=== PATIENT | male | born 1940 | race Caucasian/White ===

== ENCOUNTER 2020-06-25 03:35 | Outpatient (CLI) | payer MEDICARE, OTHER, SELFPAY ==
[2020-06-25 20:39] LABS: SARS-CoV-2 RNA PCR Negative
== END 2020-06-25 03:36 | disposition home or self-care (01) ==
LOC: ANHCOVIDDT 03:35
PROVIDERS: PCP Internal Medicine; Visit Provider Urology
DX: Z01.812 Encounter for preprocedural laboratory examination (principal); Z20.828 Contact with and (suspected) exposure to other viral communicable diseases
CPT/HCPCS: 87635; C9803; U0003

== ENCOUNTER 2020-06-28 00:33 | Day surgery (SDC) | payer MEDICARE, OTHER, SELFPAY ==
[2020-06-14 15:17] VITALS: BMI 25.7
[2020-06-28] VITALS (9 sets, daily range): BP systolic 123–163; BP diastolic 65–80; PULSE 64–73; RESP 13–18; TEMP 36.3–36.5; O2SAT 98–100
--- NOTE | 2020-06-28 06:27 | WPDHPUPDATE1 ---
History and Physical Update Update Date/Time: 06/28/20 06:27 History and Physical has been reviewed, including an updated exam of the patient. There are NO changes in the patient's condition. Risks, benefits, and alternatives have been discussed and questions answered. Patient agrees to proceed with procedure.
[2020-06-28] MEDS: LACTATED RINGERS 1,000 ML 30 ML IV CONT ×2 (10:30→11:44)
--- NOTE | 2020-06-28 10:32 | WPDANESEPPF ---
Anes - Initial Pre Proc Eval Procedure: Operation Date: 06/28/20 12:00 Proposed Procedures p Cystoscopy, Urethral Dilatation - Alejandro Worley MD s Circumcision - Alejandro Worley MD Date/Time: 06/28/20 10:32 Surgeon: Alejandro Worley MD Pre Op Diagnosis: Urethral Stricture, Phimosis Patient Data Age: 79 Gender: M Height: 5 ft 11 in Weight: 83.5 kg Allergies Allergy/AdvReac Type Severity Reaction Status Date / Time Penicillins Allergy Mild PARALYZED Unverified 06/28/20 10:12 Home Medications Medication Instructions Recorded Confirmed Type ascorbic acid (vitamin C) 500 mg PO DAILY 06/14/20 06/14/20 History aspirin [Adult Low Dose Aspirin] 81 mg PO DAILY 06/14/20 06/28/20 History atorvastatin 40 mg PO HS 06/14/20 06/14/20 History cyanocobalamin (vitamin B-12) 1,000 mcg PO DAILY 06/14/20 06/14/20 History enalapril maleate 2.5 mg PO BID 06/14/20 06/14/20 History multivitamin,tx-minerals [Men's 1 tablet PO DAILY 06/14/20 06/14/20 History MultiPlus] Patient hx anesthesia problems: none Family hx anesthesia problems: none PMFSH Past Medical History Medical History CAD (coronary artery disease) Hyperlipidemia Hypertension Surgical History Surgical History Stented coronary artery Social History Social History Smoking status: Never smoker Alcohol intake: current Alcohol use details: 4 DRINKS PER MONTH RED WINE Living arrangements: with family Spiritual care concerns: No Anes - Eval Final PreProcedure Day of Procedure 06/28/20 10:32 Patient weight: normal Heart: regular rate and rhythm Lungs: clear to auscultation Airway: Mallampati scale class II Neurological: alert and oriented Last oral intake: >/= 8 hours ASA classification: III Emergent: no Anesthetic plan: proceed Anesthesia type and monitoring: general GIVS and standard monitoring Informed Consent: The patient's anesthetic plan and its attendant risks and benefits were discussed with the patient/family/POA. Questions were solicited and answers provided to the satisfaction of the patient/family/POA.
[2020-06-28] MEDS: levoFLOXacin 500 MG/D5W 100 ML 500 MG/100 ML BAG 100 MG IVPB (10:49)
[2020-06-28] MEDS: BUPIVACAINE HCL 0.5% PF 30 ML VIAL INFILTRATE (11:12)
--- NOTE | 2020-06-28 11:39 | PM.PROC ---
Procedure Note - Detailed Date of procedure: 06/28/20 Pre-op diagnosis: Urethral Stricture, Phimosis Post-op diagnosis: same Procedure performed: 1. Cysto./urethral dilatation 2. Circumcision Description of procedure: The patient was brought to the operative suite where he was prepped and draped in a routine sterile fashion while in a supine position after the uneventful induction of a general LMA anesthetic. Cystoscopy was undertaken with a 16F flexible cystoscope. There was a tight penile urethral stricture The prostatic urethral estimated length was 1.5cm. There was mild obstruction of the prostatic urethra with no median lobe enlargement. The bladder itself was endoscopically normal without foreign body or neoplasm. The bladder mucosa was without hyperemia. There was a single orthotopic ureteral orifice bilaterally with clear efflux of urine. Using the filiforms/followers I dilated the urethra and bladder neck from 12F -> 22F. I then turned attention to the circumcision.. The lines of circumcision are outlined using a sterile marking pen. 2 circumferential circumcising incisions were made and carried down to Colle's fascia. The penile foreskin is circumferentially excised. Hemostasis is obtained with electric cautery. The edges of the penile skin reapproximated using a combination of running and interrupted 4-0 chromic. A penile block is administered at the base of the penis with 0.25% bupivacaine. The patient was taken to the recovery room in good condition. EBL was approximately 10cc. Anesthesia: GLMA Surgeon: Alejandro Worley MD Estimated blood loss (mL): 10 Drains: No Packing: No Pathology: yes (Foreskin) Complications: No immediate complications Condition: stable Disposition: PACU
== END 2020-06-28 13:20 | disposition home or self-care (01) ==
PROVIDERS: PCP Internal Medicine; Visit Provider Urology
PROC: 0T7D8ZZ Dilation of Urethra, Via Natural or Artificial Opening Endoscopic (ICD-10-PCS; CPT 52281; principal; 2020-06-28 12:00)
PROC: (CPT 54161; 2020-06-28 12:00)
DX: N35.911 Unspecified urethral stricture, male, meatal (principal); N47.1 Phimosis; N48.0 Leukoplakia of penis; I10 Essential (primary) hypertension; E78.5 Hyperlipidemia, unspecified; I25.10 Atherosclerotic heart disease of native coronary artery without angina pectoris; Z79.82 Long term (current) use of aspirin; Z95.5 Presence of coronary angioplasty implant and graft
CPT/HCPCS: 53620; 54161; 88304; A9270; J1100; J1956; J2405; J2704; J7120

== ENCOUNTER 2021-10-17 00:50 | Day surgery (SDC) | payer MEDICARE, SELFPAY ==
--- NOTE | 2021-10-09 09:10 | PC.NURSE ---
Report to the Outpatient Waiting Room, entrance under the green pavilion located off [facility], at time __06 on date __10/17/21 . OR Time: __814 . - You and your visitor will be asked a series of questions to screen for COVID 19 for your protection. - A mask is required within the hospital. Preoperative COVID Testing Requirements: No COVID Test needed if: (proof is required; if not received patient will have Rapid Test prior to entry) - Patient has received COVID Vaccine at least 14 days prior to procedure date or - Patient has positive COVID test result within last 90 days of surgery date. COVID Test needed if above criteria is not met If not COVID vaccinated a COVID test must be conducted within 72 hours of surgery and patient is asked to isolate self from time of testing until procedure. You will go to the [facility] for your COVID testing. The [facility] is located at the corner of [address] [facility]. You will only be called if COVID results are positive and your surgeon may reschedule your elective surgery date. Patients may have clear liquids (water, carbonated beverages, clear teas, apple juice) until 3 hours prior to surgery with a maximum of 20 ounces. - No food from midnight until time of surgery - Infants may have breast milk until 4 hours before surgery, formula 6 hours prior to surgery. - Children will be allowed to drink immediately following surgery. If applicable, please bring a bottle or sippy cup to assist with drinking. Juice, water, soda, and popsicles are readily available. For infants on formula, please bring formula the day of surgery. Pacifiers are allowed. Take the following medications with a SIP of water the morning of surgery: __NONE Medications to discontinue per physician ____ASPIRIN PER DR TRAN, ALL VITAMINS AND SUPPLEMENTS 3 DAYS PRE OP Date to take last dose____10/13/21 Please no make-up, nail ukrainian, hairspray, perfume, deodorant, or body powder the day of surgery. No jewelry (including any body piercings) or valuables the day of surgery, leave them at home. Please take a shower or bath the night before, or the morning of, surgery with an antibacterial soap. Wear comfortable, loose fitting clothing. Children are encouraged to wear pajamas. - Jewelry must be removed prior to entering the operating room. Rings and piercings that are not removed may be cut off. - The hospital will not accept responsibility for valuables. - Please leave all valuables, including medications, at home the day of surgery. If you are going home after surgery, a licensed lumber driver must drive you home. - NO public transportation without another adult. - We recommend that an adult stay with you for 24 hours following discharge. - We also recommend that you do not drive, make important decision, drink alcoholic beverages, or take any drugs that were not prescribed by your health care provider for at least 24 hours after your discharge time One visitor will be allowed to accompany the patient into the hospital. Patients visitor will be instructed to remain with patient at all times or leave the building. We will allow the visitor to come back to the postoperative area when patient is ready. Follow any additional instructions given to you from your surgeon. Telephone instructions given to _PATIENT and asked if any additional questions and then verbalized understanding. Patient advised to call surgeon office or pre surgery nurse liaison [phone] if any additional questions.
[2021-10-09 09:16] VITALS: BMI 25.2
--- NOTE | 2021-10-17 06:28 | WPDHPUPDATE1 ---
History and Physical Update Update Date/Time: 10/17/21 06:28 History and Physical has been reviewed, including an updated exam of the patient. There are NO changes in the patient's condition. Risks, benefits, and alternatives have been discussed and questions answered. Patient agrees to proceed with procedure.
[2021-10-17] MEDS: LACTATED RINGERS 1,000 ML 30 ML IV CONT (07:10)
--- NOTE | 2021-10-17 07:15 | WPDANESEPPF ---
Anes - Initial Pre Proc Eval Procedure: Operation Date: 10/17/21 08:15 Proposed Procedures p Cystoscopy, Urethral Dilatation - Alejandro Worley MD Date/Time: 10/17/21 07:15 Surgeon: Alejandro Worley MD Pre Op Diagnosis: Urethral Stricture, Prostate Ca Patient Data Age: 81 Gender: M Height: 1.8 m Weight: 81.6 kg Allergies Allergy/AdvReac Type Severity Reaction Status Date / Time Penicillins Allergy Mild PARALYZED Unverified 10/17/21 06:54 Home Medications Medication Instructions Recorded Confirmed Type ascorbic acid (vitamin C) 500 mg PO DAILY 06/14/20 10/17/21 History aspirin 81 mg PO DAILY 06/14/20 10/17/21 History atorvastatin 40 mg PO HS 06/14/20 10/17/21 History cyanocobalamin (vitamin B-12) 1,000 mcg PO DAILY 06/14/20 10/17/21 History enalapril maleate 2.5 mg PO BID 06/14/20 10/17/21 History multivitamin,tx-minerals 1 tablet PO DAILY 06/14/20 10/17/21 History Patient hx anesthesia problems: none Family hx anesthesia problems: none Results Review: All pre-operative results and documents have been reviewed as part of the pre-operative evaluation. [facility] Past Medical History Medical History CAD (coronary artery disease) Hyperlipidemia Hypertension Surgical History Surgical History Stented coronary artery Social History Social History Smoking status: Never smoker Alcohol intake: current Alcohol use details: 4 DRINKS PER MONTH Living arrangements: with family Spiritual care concerns: No Anes - Eval Final PreProcedure Day of Procedure 10/17/21 07:15 Patient weight: normal Heart: regular rate and rhythm Lungs: clear to auscultation Airway: Mallampati scale class II Neurological: alert and oriented Last oral intake: >/= 8 hours ASA classification: III Emergent: no Anesthetic plan: proceed Anesthesia type and monitoring: general GIVS and standard monitoring Results Review: All pre-operative results and documents have been reviewed as part of the pre-operative evaluation. Informed Consent: The patient's anesthetic plan and its attendant risks and benefits were discussed with the patient/family/POA. Questions were solicited and answers provided to the satisfaction of the patient/family/POA.
[2021-10-17] MEDS: ceFAZolin 2 GM/D5W 50 ML 2 GM/50 ML BAG IVPB (08:02)
[2021-10-17] MEDS: LIDOCAINE HCL 2% GEL UROJET 10 ML PKG MUCOUS MEM (08:16)
[2021-10-17 08:23] VITALS: BP 87/51; PULSE 58; RESP 12; O2SAT 96
--- NOTE | 2021-10-17 08:23 | W.PM.PROC2 ---
Procedure Note - Detailed Date of Procedure 10/17/21 Pre-op Diagnosis Urethral Stricture, Prostate Ca Post-op Diagnosis same Procedure Performed Cystoscopy, urethral dilatation Surgeon Alejandro Worley MD Anesthesia general Description of Procedure The patient was brought to the operative suite where he was prepped and draped in a routine sterile fashion while in a dorsal lithotomy position after the uneventful induction of a general LMA anesthetic. Cystoscopy was undertaken with a 19F rigid cystoscope. There was a markedly constricting fossa navicular. The prostatic urethral estimated length was 1.0cm. There was no obstruction of the prostatic urethra with no median lobe enlargement. The bladder itself was endoscopically normal without foreign body or neoplasm. The bladder mucosa was without hyperemia. There was a single orthotopic ureteral orifice bilaterally with clear efflux of urine. Using the Stefanie sounds I dilated the urethra and bladder neck from 12F -> 28F. The bladder was emptied and the patient was taken to the recovery room in good condition Estimated Blood Loss 0 Drains No Packing No Pathology none sent Complications No immediate complications Condition stable Disposition PACU
[2021-10-17 08:50] VITALS: BP 113/64; PULSE 56; RESP 14; O2SAT 95
[2021-10-17 09:20] VITALS: BP 139/74; PULSE 55; RESP 14
== END 2021-10-17 09:45 | disposition home or self-care (01) ==
PROVIDERS: PCP Internal Medicine; Visit Provider Urology
PROC: 0T7D8ZZ Dilation of Urethra, Via Natural or Artificial Opening Endoscopic (ICD-10-PCS; CPT 52281; principal; 2021-10-17 08:15)
DX: N99.115 Postprocedural fossa navicularis urethral stricture (principal); N40.1 Benign prostatic hyperplasia with lower urinary tract symptoms; N47.1 Phimosis; R39.11 Hesitancy of micturition; R39.16 Straining to void; Z85.46 Personal history of malignant neoplasm of prostate; Z92.3 Personal history of irradiation; I10 Essential (primary) hypertension; E78.5 Hyperlipidemia, unspecified; I25.10 Atherosclerotic heart disease of native coronary artery without angina pectoris; Z79.82 Long term (current) use of aspirin; Z95.5 Presence of coronary angioplasty implant and graft
CPT/HCPCS: 52281; A9270; J0690; J1100; J2405; J2704; J3010; J7120

== ENCOUNTER 2025-06-27 08:30 | Emergency (ER) | payer MEDICARE, SELFPAY ==
--- OUTSIDE RECORDS SUMMARY | 2024-11-25 11:15 | XMS_ITS ---
Author Organization [facility] Office Address [address] [address] [facility] [address] [place] [address] Care Team Providers Care Card Game Operator Name Role Phone TAN SANCHEZ Primary Care Provider [phone] Mitesh Mills [phone] REASON FOR VISIT PT DOESNT WANT TO BE SEEN AT ALL HE SAID TO STOP CALLING HIM Encounters Encounter Location Date Provider Diagnosis [facility] [address] [facility] [address] [place] [address] 11/25/2024 Mitesh Mills Plan Of Treatment No Information Progress Notes * NAVA ROMERO CDOB:1940 (84 yo M)Acc No.[id number]:11/25/2024 Progress Notes Patient: NAVA HANCOCK Provider: Olivia OTERO MD, Riley.Jeremy.C.P, F.A.S.N. :1940 A ge:84 Y S ex:Male Date:11/25/2024 Address:[address] [place], [place] [id number] Pcp:TAN SANCHEZ Subjective: * Chief Complaints: * 1 . PT DOESNT WANT TO BE SEEN AT ALL HE SAID TO STOP CALLING HIM. * Medical History: Objective: * Vitals: Assessment: Plan: * Treatment: * Billing Information: * Visit Code: * Procedure Codes: * Electronic signature of Debbie Mills MD on 06/27/2025 at 08:40 AM [facility] NURSE Sign off status: Pending * Provider: Olivia OTERO MD, Romeo.C.P, F.A.S.N. Date: 0 11/25/2024 Generated for Printing/Faxing/eTransmitting on: 1 08/27/2024 08:40 AM [facility] NURSE
[2025-06-27] VITALS (11 sets, daily range): BP systolic 132–157; BP diastolic 65–79; PULSE 65–72; RESP 12–21; TEMP 36.6; O2SAT 99–100
--- NOTE | ~2025-06-27 | CT_ITS ---
EXAMINATION: CT abdomen pelvis wo/w con DATE: 06/27/2025 12:04 INDICATION: Urinary retention TECHNIQUE: Computed tomography (CT) of the abdomen and pelvis was performed without intravenous contrast. CT of the abdomen and pelvis was then performed with a total of 130 mL Omnipaque-350 intravenous contrast using a double-bolus technique for simultaneous opacification of the renal parenchyma and renal collecting system. Automated exposure control and iterative reconstruction technique were employed. The dose-length product was 1184.31 mGy-cm. COMPARISON: None FINDINGS: Lung bases are clear. Heart size is normal. Atherosclerotic coronary artery disease with likely coronary artery stenting. No pericardial effusion. Small sliding-type hiatal hernia. There are multiple small well-defined low- attenuation hepatic cysts measuring up to 1 cm in the right hepatic lobe. Gallbl adder, spleen, pancreas and bilateral adrenal glands are normal. 1.2 cm nonenhancing exophytic cyst at the upper pole of the left kidney. 5-6 mm nonobstructing stone at a lower pole calyx of the left kidney. No other renal or ureteral stones. No urothelial irregularities along the contrast opacified po rtions of the renal collecting systems and ureters with small portion of the distalmost bilateral ureters are decompressed and unopacified with contrast. Small amount of gas and a Hernandez catheter within the bladder. Multiple brachytherapy seeds at the mildly enlarged prostate which measures 4.3 x 3.5 cm. Small fat-containing right inguinal hernia. There are few diverticula along the sigmoid colon without adjacent comparison to suggest diverticular colitis. Small bowel and appendix are normal. Very small fat-containing umbilical and left paraumbilical hernias. No free intraperitoneal gas or fluid. No pathologically enlarged abdominal or pelvic lymphadenopathy. Likely vasectomy clips along the bilateral spermatic cords at the base of the scrotum. Moderate lumbar spondylosis with prominent Schmorl's nodes along the inferior endplate of L1 and superior endplate of L3. IMPRESSION: 1. 5-6 mm nonobstructing left renal stone. 2. Mild prostatomegaly with multiple brachytherapy seeds the prostate. 3. Small sliding-type hiatal hernia. Reviewed, dictated and finalized at location A. TUTOR
--- NOTE | 2025-06-27 08:41 | ED.MALEGU ---
HPI - Male Genitourinary General Chief complaint: Urogenital-Male Stated complaint: unable to urinate Time Seen by Provider: 06/27/25 08:32 History of Present Illness HPI Narrative: Pt presents with urinary retention. Pt says unable to void since yesterday afternoon. Pt has history of BPH and has required a zimmerman in the past. Pt saw a urologist at [facility] yesterday but would like to see someone from Dr Joseph's group instead. Pt denies fever or other symptoms. Related Data Home Medications ?Medication ?Instructions ?Recorded ?Confirmed ?Last Taken ?Type ascorbic acid (vitamin C) 500 mg 500 mg PO DAILY 06/14/20 10/17/21 Unknown History tablet aspirin 81 mg tablet 81 mg PO DAILY 06/14/20 10/17/21 06/21/20 History Held on 10/17/21. Instructions: Resume on 10/19/21. atorvastatin 40 mg tablet 40 mg PO HS 06/14/20 10/17/21 Unknown History cyanocobalamin (vitamin B-12) 1,000 mcg PO DAILY 06/14/20 10/17/21 Unknown History 1,000 mcg tablet enalapril maleate 2.5 mg tablet 2.5 mg PO BID 06/14/20 10/17/21 Unknown History multivitamin,tx-minerals 1 tablet PO DAILY 06/14/20 10/17/21 Unknown History Allergies Allergy/AdvReac Type Severity Reaction Status Date / Time Penicillins Allergy Mild PARALYZED Unverified 10/17/21 06:54 Review of Systems Review of Systems: All systems reviewed & are unremarkable except as noted in HPI and below PMFSH Past Medical History Medical History CAD (coronary artery disease) Hyperlipidemia Hypertension Surgical History Surgical History Stented coronary artery Social History Social History Alcohol intake: current Alcohol use details: 4 DRINKS PER MONTH Living arrangements: with family Spiritual care concerns: No Exam Const: General: healthy appearing and no acute distress Nutritional Appearance: well nourished Limitations: no limitations Chest: Chest palpation & inspection: normal inspection of the chest Resp: Effort & Inspection: normal respiratory effort Auscultation: clear to auscultation bilaterally Cardio: Rate: regular rate Rhythm: regular rhythm GI: GI Palp: Yes Soft to palpation and Yes Tenderness to palpation present (GI) (suprapubic) Auscultation: normal bowel sounds : General: Yes Bladder palpation abnormal distended and tender Back/Spine/Pelvis: Back: no CVA tenderness Skin: General skin exam: normal color Rashes: no rashes Wounds: no wounds Neuro: General: patient oriented x3 and moves all extremities Speech: normal speech Extrem: General: normal to inspection and no clubbing, cyanosis or edema Psych: Mental Status: mental status grossly normal Affect: normal affect Attitude: cooperative Course Vital Signs Vital signs: Vital Signs Pulse Rate 71 06/27/25 09:08 Respiratory Rate 15 06/27/25 09:08 Blood Pressure 157/65 H 06/27/25 09:08 Pulse Oximetry 100 06/27/25 09:08 Temperature 97.9 F 06/27/25 09:15 Pulse Rate 67 06/27/25 13:37 Respiratory Rate 18 06/27/25 13:37 Blood Pressure 152/79 H 06/27/25 13:37 Pulse Oximetry 100 06/27/25 13:37 Oxygen Delivery Room Air 06/27/25 09:15 MDM - Male Genitourinary MDM Narrative Medical decision making narrative: Pt has urinary retention and cannot void. usually dribbles but not even doing that now. will place zimmerman and send off UA. discussed with Judith, said the he saw Dr Charles yesterday who is in their group because he has stricture so should follow up with him for zimmerman. Pt scheduled for CT tomorrow so will order here. CT unremarkable. Pt says he is not wanting surgery and wants to see Dr Worley so will call for appointment. no evidense of uti. Differential Diagnosis Differential diagnosis: Likely urinary tract infection, urethritis, prostatitis and acute retention of urine Lab Data Attestation: I reviewed the patient's lab results. 06/27/25 12:47 Labs: Lab Results 06/27/25 06/27/25 Range/Units 09:21 12:47 Creatinine 1.00 (0.8-1.5) mg/dL Estim Creat Clear Calc 51 ml/min Estimated GFR > 60 (59 - ) Urine Color Yellow (Yellow) Urine Appearance Clear (Clear) Urine pH 6.5 (5.0-9.0) Ur Specific Gordon 1.015 (1.001-1.035) Urine Protein Trace (Negative) mg/dL Urine Glucose (UA) Negative (Negative) mg/dL Urine Ketones Negative (Negative) mg/dL Ur Blood (Man) Negative (Negative) Urine Nitrate Negative (Negative) Urine Bilirubin Negative (Negative) Urine Urobilinogen 0.2 (<2.0) mg/dL Leukocyte Esterase Rfl Negative (Negative) SANTANA/UL Urine RBC 0-2 (0-2) /hpf Urine WBC 0-5 (0-3) /hpf Ur Squamous Epith Cells None seen (Few) /hpf Urine Bacteria None seen /hpf Urine Casts 0-2 Imaging Data Radiologist's impression: [place] [address] [place] [address] CT Scan Report Signed Patient: Drew Gomes : 1940 MR#: [id number] Age: 84 Acct:[id number] Loc: [facility] ADM Date: 06/27/[address]: Ordering Physician: Evi Elena III, DO Date of Service: 06/27/25 Procedure(s): CT abdomen pelvis wo/w con Accession Number(s): [id number] cc: Evi Elena III, DO~ EXAMINATION: CT abdomen pelvis wo/w con DATE: 06/27/2025 12:04 INDICATION: Urinary retention TECHNIQUE: Computed tomography (CT) of the abdomen and pelvis was performed without intravenous contrast. CT of the abdomen and pelvis was then performed with a total of 130 mL Omnipaque-350 intravenous contrast using a double-bolus technique for simultaneous opacification of the renal parenchyma and renal collecting system. Automated exposure control and iterative reconstruction technique were employed. The dose-length product was 1184.31 mGy-cm. COMPARISON: None FINDINGS: Lung bases are clear. Heart size is normal. Atherosclerotic coronary artery disease with likely coronary artery stenting. No pericardial effusion. Small sliding-type hiatal hernia. There are multiple small well-defined low-attenuation hepatic cysts measuring up to 1 cm in the right hepatic lobe. Gallbladder, spleen, pancreas and bilateral adrenal glands are normal. 1.2 cm nonenhancing exophytic cyst at the upper pole of the left kidney. 5-6 mm nonobstructing stone at a lower pole calyx of the left kidney. No other renal or ureteral stones. No urothelial irregularities along the contrast opacified portions of the renal collecting systems and ureters with small portion of the distalmost bilateral ureters are decompressed and unopacified with contrast. Small amount of gas and a Zimmerman catheter within the bladder. Multiple brachytherapy seeds at the mildly enlarged prostate which measures 4.3 x 3.5 cm. Small fat-containing right inguinal hernia. There are few diverticula along the sigmoid colon without adjacent comparison to suggest diverticular colitis. Small bowel and appendix are normal. Very small fat-containing umbilical and left paraumbilical hernias. No free intraperitoneal gas or fluid. No pathologically enlarged abdominal or pelvic lymphadenopathy. Likely vasectomy clips along the bilateral spermatic cords at the base of the scrotum. Moderate lumbar spondylosis with prominent Schmorl's nodes along the inferior endplate of L1 and superior endplate of L3. IMPRESSION: 1. 5-6 mm nonobstructing left renal stone. 2. Mild prostatomegaly with multiple brachytherapy seeds the prostate. 3. Small sliding-type hiatal hernia. Reviewed, dictated and finalized at location A. RGLASS CONTAINER WINDING OPERATOR Please be advised this is a medical document. It is intended for [id number] communication. It is written in medical language and may contain unfamiliar abbreviations or verbiage. Medical documents are intended to carry relevant information, facts as evident, and the clinical opinion of the practitioner at the time of the encounter. This report may have been done utilizing a voice recognition system. Attempts have been made to correct errors. However, there may be uncorrected grammatical, spelling, and recognition errors present. The file time of this note does not necessarily represent the time of service. Dictated By: Vick Neal MD 06/27/25 1213 Signed By: <Electronically signed by Vick Neal MD in OV> Discharge Plan Discharge Clinical Impression: Acute retention of urine Patient Disposition: Home Condition: Improved Instructions: Antibiotic Form, Urinary Retention in Men (ED) Patient Language: Uzbek Prescriptions: No Action atorvastatin 40 mg tablet 40 mg PO HS aspirin 81 mg Tablet 81 mg PO DAILY cyanocobalamin (vitamin B-12) 1,000 mcg Tablet 1,000 mcg PO DAILY ascorbic acid (vitamin C) 500 mg Tablet 500 mg PO DAILY multivitamin,tx-minerals Tablet 1 tablet PO DAILY enalapril maleate 2.5 mg tablet 2.5 mg PO BID hydrocodone-acetaminophen 5-325 mg tablet 1 - 2 tablet PO Q6H PRN (Reason: pain) Qty: 20 0RF ciprofloxacin HCl 500 mg tablet 500 mg PO Q12H Qty: 4 0RF Follow-up/Referrals: Carolynn,MD Barrie [Primary Care Provider, Unknown] Cesar Wong MD [Physician, Urology] Lizbeth Charles MD [Physician, Urology]
--- OUTSIDE RECORDS SUMMARY | 2025-06-27 08:41 | XMS_ITS | Data Portability ---
Author Organization [facility] [employer], Main Office Address [address] [place] [address] Care Team Providers Care Funeral Professional Name Role Phone BARRIE PRADHAN Primary Care Provider [phone] BARRIE PRADHAN Referring Provider Assessment Encounter Date Assessment Date Assessment LastModified by Organization Details LastModified Time 05/10/2024 05/10/2024 06/17/2022: B12/Folate/ T D/TSH/CMP/Lip id: WNL CBC: MCV 99.8 11/12/2022: A1C 5.8 B12/folate/TS H/VIT D/Lipid: WNL Gluc 100 CBC: MCV 98.3 03/17/2023: A1C 5.8 VIT D 29.9 LDL 119 Bili T 1.90 MCV 97.6 07/21/2023: A1C 5.4 Chol 207, LDL 145 MCV 101.5 12/29/2023: A1C 5.7 Gluc 101 MCV 100.0 (B12/folate/T SH/FT4: WNL) 05/03/2024: Urine micro alb 603.3 VIT D 26.2 H/H 12.8/38.6, MCV 98.7 [email or web address] Not available 05/10/2024 11:33:24 09/13/2024 09/13/2024 06/17/2022: B12/Folate/ T D/TSH/CMP/Lip id: WNL CBC: MCV 99.8 11/12/2022: A1C 5.8 B12/folate/TS H/VIT D/Lipid: WNL Gluc 100 CBC: MCV 98.3 03/17/2023: A1C 5.8 VIT D 29.9 LDL 119 Bili T 1.90 MCV 97.6 07/21/2023: A1C 5.4 Chol 207, LDL 145 MCV 101.5 12/29/2023: A1C 5.7 Gluc 101 MCV 100.0 (B12/folate/T SH/FT4: WNL) 05/03/2024: Urine micro alb 603.3 VIT D 26.2 H/H 12.8/38.6, MCV 98.7 [email or web address] Not available 09/13/2024 11:17:36 01/03/2025 01/03/2025 06/17/2022: B12/Folate/ T D/TSH/CMP/Lip id: WNL CBC: MCV 99.8 11/12/2022: A1C 5.8 B12/folate/TS H/VIT D/Lipid: WNL Gluc 100 CBC: MCV 98.3 03/17/2023: A1C 5.8 VIT D 29.9 LDL 119 Bili T 1.90 MCV 97.6 07/21/2023: A1C 5.4 Chol 207, LDL 145 MCV 101.5 12/29/2023: A1C 5.7 Gluc 101 MCV 100.0 (B12/folate/T SH/FT4: WNL) 05/03/2024: Urine micro alb 603.3 VIT D 26.2 H/H 12.8/38.6, MCV 98.7 12/27/2024: [facility] LDL 58 T bili 1.8 A1C 5.8 [email or web address] Not available 01/03/2025 11:28:51 04/18/2025 04/18/2025 06/17/2022: B12/Folate/ T D/TSH/CMP/Lip id: WNL CBC: MCV 99.8 11/12/2022: A1C 5.8 B12/folate/TS H/VIT D/Lipid: WNL Gluc 100 CBC: MCV 98.3 03/17/2023: A1C 5.8 VIT D 29.9 LDL 119 Bili T 1.90 MCV 97.6 07/21/2023: A1C 5.4 Chol 207, LDL 145 MCV 101.5 12/29/2023: A1C 5.7 Gluc 101 MCV 100.0 (B12/folate/T SH/FT4: WNL) 05/03/2024: Urine micro alb 603.3 VIT D 26.2 H/H 12.8/38.6, MCV 98.7 12/27/2024: [facility] LDL 58 T bili 1.8 A1C 5.8 04/11/2025: [facility] Urine random 156H T bili 1.6H MCV 101.2 45 minutes spent with the patient from 10.45am till 11.30am His labs were obtained from [employer] and reviewed in detail with him, further labs provided mary Not available 04/18/2025 15:40:13 Plan of Treatment Reminders Order Date Submit Date Provider Last Modified By Organization Details Last Modified Time Details Appointments Medicare Wellness 15 2025 10:30A M Barrie rutledge MD Not available Not available Not available Lab vitamin B12 + folate, serum or blood 2024 025 [facility], [address], [place], [address], 04/18/2025 12:42:35 microalbu min, urine 2024 025 [facility], [address], [place], [address], 04/18/2025 12:42:34 glycohemo globin, total, blood 2024 025 [employer], [address], [place], [address], 04/18/2025 12:42:34 lipid panel, serum 2024 025 [facility], [address], [place], [address], 04/18/2025 12:42:36 CMP, serum or plasma 2024 025 [employer], [address], [place], [address], 04/18/2025 12:42:37 TSH, serum or plasma 2024 025 [employer] [facility], [address], [place], [address], 04/18/2025 12:42:35 CBC w/ auto diff 2024 025 [facility], [address], [place], [address], 04/18/2025 12:42:36 vitamin D, 25-hydrox y, total, serum 2024 025 [facility] [facility], [address], [place], [address], 04/18/2025 12:42:37 vitamin B12 + folate, serum or blood 2024 025 [facility], [address], [place], [address], 01/03/2025 16:43:53 microalbu min, urine 2024 025 [facility], [address], [place], [address], 01/03/2025 16:43:52 glycohemo globin, total, blood 2024 025 [facility], [address], [place], [address], 01/03/2025 16:43:52 lipid panel, serum 2024 025 [facility], [address], [place], [address], 01/03/2025 16:43:48 CMP, serum or plasma 2024 025 [facility], [address], [place], [address], 01/03/2025 16:43:49 TSH, serum or plasma 2024 025 [facility], [address], [place], [address], 01/03/2025 16:43:50 CBC w/ auto diff 2024 025 [email or web address], [address], [place], [address], 01/03/2025 16:43:50 vitamin D, 25-hydrox y, total, serum 2024 025 [facility], [address], [place], [address], 01/03/2025 16:43:51 vitamin B12 + folate, serum or blood [address] (Lab), [address] [place], [address], 03/13/2025 14:43:27 microalbu min, urine [address] (Lab), [address] [place], [address], 03/13/2025 14:43:27 glycohemo globin, total, blood [address] (Lab), [address] [place], [address], 03/13/2025 14:43:27 lipid panel, serum [address] (Lab), [address] [place], [address], 03/13/2025 14:43:26 CMP, serum or plasma [address] (Lab), [address] [place], [address], 03/13/2025 14:43:26 TSH, serum or plasma [address] (Lab), [address] [place], [address], 03/13/2025 14:43:26 CBC w/ auto diff [address] (Lab), [address] [place], [address], 03/13/2025 14:43:26 vitamin D, 25-hydrox y, total, serum [address] (Lab), [address] [place], [address], 03/13/2025 14:43:27 vitamin B12 + folate, serum or blood [address] (Lab), [address] [place], [address], 11/09/2024 08:38:42 microalbu min, urine [address] (Lab), [address] [place], [address], 11/09/2024 08:38:41 glycohemo globin, total, blood [address] (Lab), [address] [place], [address], 11/09/2024 08:38:42 lipid panel, serum [address] (Lab), [address] [place], [address], 11/09/2024 08:38:41 CMP, serum or plasma [address] (Lab), [address] [place], [address], 11/09/2024 08:38:41 TSH, serum or plasma [address] (Lab), [address] [place], [address], 11/09/2024 08:38:41 CBC w/ auto diff [address] (Lab), [address] [place], [address], 11/09/2024 08:38:41 vitamin D, 25-hydrox y, total, serum [address] (Lab), [address] [place], [address], 11/09/2024 08:38:41 Referral urologist referral - Please call patient to schedule an appointme nt. Thank you. 2024 025 SNOW Worley MD, [address] [facility] [address], [place], [address], 04/25/2025 10:27:15 nephrolog ist referral - Please call patient to schedule an appointme nt. Thank you. 2024 025 Marcelo-Resub [email or web address]-Revert Mitesh Mills MD (Nephrology, [address], [address], [place], [address], 04/25/2025 12:05:21 cardiolog ist referral - Please call patient to schedule an appointme nt. Thank you. 2024 025 SNOW Rodriguez MD, [address] [facility], [address], [place], [address], 04/25/2025 11:02:49 urologist referral - Please call patient to schedule an appointme nt. Thank you. 2024 025 scot Worley MD, [address] [facility] [address], [place], [address], 04/10/2025 11:01:51 nephrolog ist referral - Please call patient to schedule an appointme nt. Thank you. 2024 025 scot Mills MD (Nephrology, [address], [address], [place], [address], 04/10/2025 11:01:49 cardiolog ist referral - Please call patient to schedule an appointme nt. Thank you. 2024 025 scot Rodriguez MD, [address], [address], [place], [address], 04/10/2025 11:01:48 urologist referral - Please call patient to schedule an appointme nt. Thank you. 2024 025 scot Worley MD, [address] [facility] [address], [place], [address], 05/22/2025 14:24:47 nephrolog ist referral - Please call patient to schedule an appointme nt. Thank you. 2024 025 scot Mills MD (Nephrology, [address], [address], [place], [address], 01/19/2025 09:42:53 cardiolog ist referral - Please call patient to schedule an appointme nt. Thank you. 2024 025 scot Rodriguez MD, [address], [address], [place], [address], 01/19/2025 09:42:52 nephrolog ist referral - Please call patient to schedule. 2023 024 [email or web address] Mitesh Mills MD (Nephrology, [address], [address], [place], [address], 12/12/2024 14:02:57 cardiolog ist referral 2023 024 [email or web address] Derrick Rodriguez MD, [address] [facility], [address], [place], [address], 05/10/2024 12:31:33 Procedures None recorded. Surgeries None recorded. Imaging None recorded. Medication Orders trazodone 50 mg tablet 2023 024 [email or web address] [facility], [address] [place] [address], [address], 09/13/2024 11:29:14 Myrbetriq 50 mg tablet,ex tended release 2023 024 [email or web address] [facility], [address] [place] [address], [place], [address], 01/03/2025 11:19:39 Patient TargetsNo targets recorded. Patient Instructions Encounter Date Encounter Id Patient Instructions Last Modified By Organization Details Last Modified Time 05/10/2024 [id number] diabetic eye exam* [email or web address] Not available 11/07/2024 08:35:06 05/25/2024 [id number] 1. He might have a component of urge incontinence I will try him back on the Myrbetriq again 2. He may have a sleep disorder I am going to restart his trazodone 50 mg q.h.s. 3. 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 Follow up as needed [email or web address] Not available 05/25/2024 17:59:10 09/13/2024 [id number] diabetic eye exam* [email or web address] Not available 03/13/2025 08:39:32 Reason for Referral Enrolled Agent Referral for Co ronary arteriosclerosis Referring Physician: Tejinder Recinos Medicine, Encounter Date: 05/10/2024 Coordinate Measuring Machine Technician Referral for Pr oteinuria Please call patient to schedule. Referring Physician: Tejinder Recinos, Encounter Date: 05/10/2024 Enrolled Agent Referral for Co ronary arteriosclerosis Please call patient to schedule an appointment. Thank you. Referring Physician: Barrie Pradhan Internal Medicine, Encounter Date: 09/13/2024 Coordinate Measuring Machine Technician Referral for Pr oteinuria Please call patient to schedule an appointment. Thank you. 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 Thank you. Referring Physician: Tejinder Recinos, Encounter Date: 09/13/2024 Enrolled Agent Referral for Co ronary arteriosclerosis Please call patient to schedule an appointment. Thank you. Referring Physician: Tejinder Recinos, Encounter Date: 01/03/2025 Coordinate Measuring Machine Technician Referral for Pr oteinuria Please call patient to schedule an appointment. Thank you. 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 Thank you. Referring Physician: Tejinder Recinos Medicine, Encounter Date: 01/03/2025 Enrolled Agent Referral for Co ronary arteriosclerosis Please call patient to schedule an appointment. Thank you. Referring Physician: Tejinder Recinos, Encounter Date: 04/18/2025 Coordinate Measuring Machine Technician Referral for Pr oteinuria Please call patient to schedule an appointment. Thank you. Referring Physician: Tejinder Recinos, Encounter Date: 04/18/2025 Urologist Referral for Malmatilda nant neoplasm of prostate Please call patient to schedule an appointment. Thank you. Referring Physician: Barrie Pradhan, Internal Medicine, Encounter Date: 04/18/2025 Results Created Date Observation Date Name Description Value Unit Range Abnormal Flag Note LastModifiedBy Organization Detail LastModifiedTime 05/03/20 24 05/03/2024 CBC/C OMPLE TE BLD COUNT W/DIF F white blood cells 5.5 x10'3 /uL 4.2-10 .8 Not Available [facility] (Lab) [address] [place], [address], 05/03/2024 12:23:38 05/03/20 24 05/03/2024 CBC/C OMPLE TE BLD COUNT W/DIF F red blood cells 3.91 x10'6 /uL 4.10-5 .80 low Not Available [facility] (Lab) [address] [place], [address], 05/03/2024 12:23:38 05/03/20 24 05/03/2024 CBC/C OMPLE TE BLD COUNT W/DIF F hemoglobin 12.8 g/dL 13.2-1 7.0 low Not Available [facility] (Lab) [address] [place], [address], 05/03/2024 12:23:38 05/03/20 24 05/03/2024 CBC/C OMPLE TE BLD COUNT W/DIF F hematocrit 38.6 % 39.3-5 0.0 low Not Available [facility] (Lab) [address] [place], [address], 05/03/2024 12:23:38 05/03/20 24 05/03/2024 CBC/C OMPLE TE BLD COUNT W/DIF F mean red cell volume 98.7 fL 80.0-9 7.0 high Not Available [facility] (Lab) [address] [place], [address], 05/03/2024 12:23:38 05/03/20 24 05/03/2024 CBC/C OMPLE TE BLD COUNT W/DIF F mean red cell hemoglobin 32.7 pg 27.0-3 3.0 Not Available [facility] (Lab) [address] [place], [address], 05/03/2024 12:23:38 05/03/20 24 05/03/2024 CBC/C OMPLE TE BLD COUNT W/DIF F mean RBC HGB concentratio n 33.2 g/dL 31.0-3 6.0 Not Available [facility] (Lab) [address] [place], [address], 05/03/2024 12:23:38 05/03/20 24 05/03/2024 CBC/C OMPLE TE BLD COUNT W/DIF F red cell distribution width 12.6 % 11.8-1 5.5 Not Available [facility] (Lab) [address] [place], [address], 05/03/2024 12:23:38 05/03/20 24 05/03/2024 CBC/C OMPLE TE BLD COUNT W/DIF F platelets 241 x10'3 /uL 150-40 0 Not Available [facility] (Lab) [address] [place], [address], 05/03/2024 12:23:38 05/03/20 24 05/03/2024 CBC/C OMPLE TE BLD COUNT W/DIF F mean platelet volume 10.1 fL 9.0-12 .4 Not Available [facility] (Lab) [address] [place], [address], 05/03/2024 12:23:38 05/03/20 24 05/03/2024 CBC/C OMPLE TE BLD COUNT W/DIF F neutrophils 53.8 % 39.0-7 2.0 Not Available [facility] (Lab) [address] [place], [address], 05/03/2024 12:23:38 05/03/20 24 05/03/2024 CBC/C OMPLE TE BLD COUNT W/DIF F lymphocytes 26.5 % 16.0-4 7.0 Not Available [facility] (Lab) [address] [place], [address], 05/03/2024 12:23:38 05/03/20 24 05/03/2024 CBC/C OMPLE TE BLD COUNT W/DIF F monocytes 11.9 % 5.0-12 .0 Not Available [facility] (Lab) [address] [place], [address], 05/03/2024 12:23:38 05/03/20 24 05/03/2024 CBC/C OMPLE TE BLD COUNT W/DIF F eosinophils 6.1 % 1.0-7. 0 Not Available [facility] (Lab) [address] [place], [address], 05/03/2024 12:23:38 05/03/20 24 05/03/2024 CBC/C OMPLE TE BLD COUNT W/DIF F basophils 1.3 % 0.0-2. 0 Not Available [facility] (Lab) [address] [place], [address], 05/03/2024 12:23:38 05/03/20 24 05/03/2024 CBC/C OMPLE TE BLD COUNT W/DIF F immature granulocytes 0.4 % 0.00-0 .50 Not Available [facility] (Lab) [address] [place], [address], 05/03/2024 12:23:38 05/03/20 24 05/03/2024 CBC/C OMPLE TE BLD COUNT W/DIF F neutrophils, absolute count 2.98 x10'3 /uL 1.5-8. 0 Not Available [facility] (Lab) [address] [place], [address], 05/03/2024 12:23:38 05/03/20 24 05/03/2024 CBC/C OMPLE TE BLD COUNT W/DIF F lymphocytes, absolute count 1.47 x10'3 /uL 1.07-3 .43 Not Available [facility] (Lab) [address] [place], [address], 05/03/2024 12:23:38 05/03/20 24 05/03/2024 CBC/C OMPLE TE BLD COUNT W/DIF F monocytes, absolute count 0.66 x10'3 /uL 0.29-0 .99 Not Available [facility] (Lab) [address] [facility] [place], [address], 05/03/2024 12:23:38 05/03/20 24 05/03/2024 CBC/C OMPLE TE BLD COUNT W/DIF F eosinophils, absolute count 0.34 x10'3 /uL 0.02-0 .53 Not Available [facility] (Lab) [address] [place], [address], 05/03/2024 12:23:38 05/03/20 24 05/03/2024 CBC/C OMPLE TE BLD COUNT W/DIF F basophils, absolute count 0.07 x10'3 /uL 0.01-0 .08 Not Available [facility] (Lab) [address] [place], [address], 05/03/2024 12:23:38 05/03/20 24 05/03/2024 CBC/C OMPLE TE BLD COUNT W/DIF F immature granulocytes ,absolute 0.02 x10'3 /uL 0.00-0 .05 Not Available [facility] (Lab) [address] [place], [address], 05/03/2024 12:23:38 05/03/20 24 05/03/2024 CBC/C OMPLE TE BLD COUNT W/DIF F nucleated red blood cells 0.0 % -0 Not Available [facility] (Lab) [address] [place], [address], 05/03/2024 12:23:38 05/03/20 24 05/03/2024 CBC/C OMPLE TE BLD COUNT W/DIF F NRBC# 0.00 x10'3 /uL Not Available [facility] (Lab) [address] [place], [address], 05/03/2024 12:23:38 05/03/20 24 05/03/2024 LIPID PANEL cholesterol 101 mg/dL 140-19 9 low NIH DAYAN NSUS RECOM MENDA TION FOR SAVANNA STERO L: ADULT CHILD LOW RISK: <200 <170 BORDE RLINE : <200- 239 ----- HIGH RISK: >240 >200 Not Available [facility] (Lab) [address] [place], [address], 05/03/2024 12:44:18 05/03/20 24 05/03/2024 LIPID PANEL triglyceride s 68 mg/dL 0-150 NIH DAYAN NSUS REPOR T RECOM MENDA TION FOR TRIGL YCERI JONAH: ADULT CHILD LOW RISK: <150 ----- BODER LINE: 150-1 99 ----- HIGH RISK: >200 ----- Not Available [facility] (Lab) [address] [place], [address], 05/03/2024 12:44:18 05/03/20 24 05/03/2024 LIPID PANEL HDL cholesterol 44 mg/dL 40- Not Available [facility] (Lab) [address] [place], [address], 05/03/2024 12:44:18 05/03/20 24 05/03/2024 LIPID PANEL LDL cholesterol, calculated 43 mg/dL 0-130 NIH DAYAN NSUS REPOR T RECOM MENDA TIONS FOR LDL: ADULT CHILD LOW RISK <130 <110 (OPTI MAL LDL) <100 ----- MATTHIAS RLINE : 130-1 59 ----- HIGH RISK: >160 >130 A TRIGL YCERI DE RESUL T >400 INVAL IDATE S THE CALCU LATIO N FOR LDL FRACT IONAT ION - THE LDL RESUL T WILL NOT BE REPOR IRENE. Not Available [facility] (Lab) [address] [place], [address], 05/03/2024 12:44:18 05/03/20 24 05/03/2024 COMP MET PANEL /LIVE R sodium 137 mmol/ L 137-14 5 Not Available [facility] (Lab) [address] [place], [address], 05/03/2024 12:44:23 05/03/20 24 05/03/2024 COMP MET PANEL /LIVE R potassium 4.3 mmol/ L 3.5-5. 1 Not Available [facility] (Lab) [address] [place], [address], 05/03/2024 12:44:23 05/03/20 24 05/03/2024 COMP MET PANEL /LIVE R chloride 105 mmol/ L 98-107 Not Available [facility] (Lab) [address] [place], [address], 05/03/2024 12:44:23 05/03/20 24 05/03/2024 COMP MET PANEL /LIVE R carbon dioxide 27 mmol/ L 22-30 Not Available [facility] (Lab) [address] [place], [address], 05/03/2024 12:44:23 05/03/20 24 05/03/2024 COMP MET PANEL /LIVE R anion gap 9.3 mmol/ L 14-22 low Not Available [facility] (Lab) [address] [place], [address], 05/03/2024 12:44:23 05/03/20 24 05/03/2024 COMP MET PANEL /LIVE R glucose 98 mg/dL 70-99 Not Available [facility] (Lab) [address] [place], [address], 05/03/2024 12:44:23 05/03/20 24 05/03/2024 COMP MET PANEL /LIVE R BUN 19 mg/dL 8-19 Not Available [facility] (Lab) [address] [place], [address], 05/03/2024 12:44:23 05/03/20 24 05/03/2024 COMP MET PANEL /LIVE R creatinine 0.77 mg/dL 0.66-1 .25 Not Available [facility] (Lab) [address] [place], [address], 05/03/2024 12:44:23 05/03/20 24 05/03/2024 COMP MET PANEL /LIVE R GFR >60 Refer ence Range : [place] ge GFR Healt hy Adult : >60 mL/mi n/1.7 3 m2 Chron ic Kidne y Disea se: 15-60 mL/mi n/1.7 3 m2 Kidne y Failu re: <15/m L/min /1.73 m2 www.n iddk. nih.g ov The MDRD study equat ion has not been valid ated in child michael <18 years of age; pregn ant women ; the elder ly >85 years of age; or in some racia l or ethni c subgr oups, such as [facility] nics. Outsi de the valid ated sheri eters , estim ated GFR is less accur ate, requi ring clini boo judgm ent on a case- by-ca se basis . Clini boo inter preta tion for other races and ages must be made by the clini gayle. The MDRD study equat ion has not been valid ated for the evalu ation of serum creat inine relat ed to nutri solange l statu s or medic ation usage . For perso ns <18 years of age, a pedia tric GFR calcu lator is avail able on the [facility] websi te: https ://мария cortes.susan rain.o rg/pr ofess ional s/kdo qi/gf r_cal culat or Not Available [facility] (Lab) [address] [place], [address], 05/03/2024 12:44:23 05/03/20 24 05/03/2024 COMP MET PANEL /LIVE R alkaline phosphatase 78 U/L 38-126 Not Available [facility] (Lab) [address] [place], [address], 05/03/2024 12:44:23 05/03/20 24 05/03/2024 COMP MET PANEL /LIVE R alanine aminotransfe rase 23 U/L 0-50 Not Available [facility] (Lab) [address] [place], [address], 05/03/2024 12:44:23 05/03/20 24 05/03/2024 COMP MET PANEL /LIVE R aspartate aminotransfe rase 37 U/L 15-46 Not Available [facility] (Lab) [address] [place], [address], 05/03/2024 12:44:23 05/03/20 24 05/03/2024 COMP MET PANEL /LIVE R bilirubin, total 1.20 mg/dL 0.20-1 .30 Not Available [facility] (Lab) [address] [place], [address], 05/03/2024 12:44:23 05/03/20 24 05/03/2024 COMP MET PANEL /LIVE R bilirubin, conjugated (direct) 0.00 mg/dL 0.00-0 .30 Not Available [facility] (Lab) [address] [place], [address], 05/03/2024 12:44:23 05/03/20 24 05/03/2024 COMP MET PANEL /LIVE R biliurubin,u ncong. (indirect) 0.80 mg/dL 0.00-1 .1 Not Available [facility] (Lab) [address] [place], [address], 05/03/2024 12:44:23 05/03/20 24 05/03/2024 COMP MET PANEL /LIVE R calcium 8.8 mg/dL 8.4-10 .2 Not Available [facility] (Lab) [address] [place], [address], 05/03/2024 12:44:23 05/03/20 24 05/03/2024 COMP MET PANEL /LIVE R total protein 6.8 g/dL 6.3-8. 2 Not Available [facility] (Lab) [address] [place], [address], 05/03/2024 12:44:23 05/03/20 24 05/03/2024 COMP MET PANEL /LIVE R albumin 3.9 g/dL 3.0-4. 4 Not Available [facility] (Lab) [address] [place], [address], 05/03/2024 12:44:23 05/03/20 24 05/03/2024 COMP MET PANEL /LIVE R globulin 2.9 g/dL 2.6-4. 2 Not Available [facility] (Lab) [address] [place], [address], 05/03/2024 12:44:23 05/03/20 24 05/03/2024 COMP MET PANEL /LIVE R A/G ratio 1.3 ratio 1.0-2. 0 Not Available [facility] (Lab) [address] [place], [address], 05/03/2024 12:44:23 05/03/20 24 05/03/2024 VITAM IN D 25-HY DROXY vd25oh 26.2 NG/mL 30-100 low Vitam in D Statu s: Defic ient: <20 ng/mL Insuf ficie nt: 20-29 ng/mL Suffi cient : 30-10 0 ng/mL Not Available [facility] (Lab) [address] [place], [address], 05/03/2024 12:54:30 05/03/20 24 05/03/2024 TSH W/REF YVON FT4 TSH with reflex free T4 1.790 uIU/m L 0.465- 4.680 Not Available [facility] (Lab) [address] [place], [address], 05/03/2024 12:56:41 05/03/20 24 05/03/2024 MICRO ALBUM IN RANDO M URINE microalbumin , urine 603.3 mg/L 0.0-16 .6 high Not Available [facility] (Lab) [address] [place], [address], 05/03/2024 17:22:12 05/03/20 24 05/03/2024 VITAM IN B12 (JEANNIE CAROL ) vb12 989 pg/mL 239-93 1 high Not Available [facility] (Lab) [address] [place], [address], 05/03/2024 13:33:34 05/03/20 24 05/03/2024 FOLAT E, SERUM /PLAS MA folate 12.4 NG/mL 2.76-2 0.0 Not Available [facility] (Lab) [address] [place], [address], 05/03/2024 13:33:40 05/03/20 24 05/06/2024 HA1C, SEND- OUT TO LAB[facility] RP hemoglobin A1C 5.9 % 4.8-5. 6 high . . Predi abete s: 5.7 - 6.4 Diabe freddie: >6.4 Glyce cyndee contr ol for adult s with diabe freddie: <7.0 Perfo rmed at: CB - Labco rp [facility] n [address] [facility], [place] [address] 5242 Lab Direc tor: Ward schroeder PhD, Phone : [phone] Not Available [facility] (Lab) [address], [place], [address], 05/06/2024 08:22:32 04/26/20 24 04/26/2024 US, bladd er No observ ation record ed. [email or web address] [facility] [address] [facility] [address], [place], [address], 04/26/2024 16:29:54 09/22/19 25 09/21/2024 US, carot id arter y No observ ation record ed. [email or web address] [facility] [address], [place], [address], 09/23/2024 10:09:34 09/22/19 25 09/21/2024 imagi ng/di agnos tic resul t No observ ation record ed. [facility] [address], [place], [address], 09/22/2024 11:34:39 11/03/19 25 11/01/2024 trans -thor acic echoc ardio gram (TTE) (PROC ) No observ ation record ed. [email or web address] [facility] [address], [place], [address], 11/03/2024 09:21:47 11/03/19 25 11/01/2024 imagi ng/di agnos tic resul t No observ ation record ed. [facility] [address], [place], [address], 11/02/2024 21:41:15 Result Notes None recorded. Problems Name Problem SNOMED Code Status Onset Date Resolution Date Notes Provider Name and Address Organization Details Recorded Time Shoulder joint pain 836482280 Active Not Available [facility] 3 04:49:24 Hyperglycemia 00543563 Active 2021 Not Available [facility] 3 04:49:24 Hyperlipidemi a 56987518 Active 2021 Not Available [facility] 3 04:49:24 Essential hypertension 07795226 Active 2022 Barrie moore MD [address], [address], [place], [address] , [place] [facility] 3 14:24:13 Malignant neoplasm of prostate 642356752 Active 2022 Barrie moore MD [address], [address], [place], [address] , [employer] - [facility] 3 14:24:24 Coronary arteriosclero sis 46613013 Active 2022 Barrie moore MD [address], [place], [address] , [employer] [facility] [employer] 3 14:24:30 Hyperbilirubi nemia 95159991 Active 2022 Barrie moore MD [address], [place], [address] , [employer] [facility] 3 14:24:38 Vitamin D deficiency 91323552 Active 2022 Barrie moore MD [address], [place], [address] , [employer] - [facility] 3 14:24:42 Macrocytosis 791128942 Active 2022 Barrie moore MD [address], [place], [address] , [employer] [facility] 3 14:24:47 Persistent insomnia 825284290 Active 2022 Barrie moore MD [address], [place], [address] , [place] [facility] 3 14:24:53 Essential tremor 240269492 Active 2022 Barrie moore MD [address], [address], [place], [address] , [place] [facility] 3 14:24:57 Prediabetes 037650120 Active 2022 Barrie moore MD [address], [address], [place], [address] , [place] [facility] 3 10:20:58 Urinary incontinence 057207276 Active 2023 RAEANN Rivers, [place] [facility] 4 13:40:29 Benign prostatic hyperplasia with outflow obstruction 086193021 Active 2023 Cesar Machuca MD [address], [place], [address] , [place] [facility] 4 19:41:14 Prostatitis 6860453 Active 2023 Cesar Machuca MD [address], [place], [address] , [place] [facility] 4 10:25:27 Overactive urinary bladder 438182970 Active 2023 Cesar Machuca MD [address], [place], [address] , [place] [facility] 4 10:25:57 Acute urinary tract infection 898368241 Active 2023 Cesar Machuca MD [address], [place], [address] , [place] [facility] 4 10:26:40 Urinary symptoms 890674793 Active 2023 RAEANN Rivers, [place] [facility] 4 15:08:26 Proteinuria 75779177 Active 2023 Barrie moore MD [address], [place], [address] , [place] [facility] 4 11:33:22 Male urinary stress incontinence 071374676 Active 2023 Cesar Machuca MD [address] [facility] [facility] [address], [place], [address] , [employer] 4 17:55:51 Urge incontinence of urine 22485712 Active 2023 Cesar Machuca MD [address] [facility], [facility] [address], [place], [address] , [employer] 4 17:56:00 Problem Notes None recorded. Procedures Surgical History Date Name Laterality Status Provider Name and Address Organization Details Recorded Time 04/10/20 25 extracapsular cataract extraction and insertion of intraocular lens completed Violet Ward MA [employer] 04/18/2025 11:33:36 01/05/20 24 Medicare Wellness CPT Code, subsequent completed Donato Purdy LPN [place] [employer] [facility] [employer] 01/05/2024 08:36:01 01/05/20 24 Advanced Care Planning completed Donato Purdy LPN [employer] [facility] [employer] 01/05/2024 12:10:53 12/09/19 19 Colonoscopy completed Not Available Pending sale to [facility] 10/16/19 04:42:13 Prostate completed Not Available Pending sale to [facility] 04:42:13 Imaging Results None recorded. Procedure Notes None recorded. Medical Equipment None Reported. Allergies Allergen ID Allergen Name Allergen Category Reaction Reaction Severity Criticality Documentation Date Start Date Code Code System Note Provider Name and Address Organization Details Recorded Time 96510 Product containin g penicilli n (product) medicatio n other Not available Not available 11/18/2022 65463 8001 SNOMED paral ysis of limbs JAZMÍN Nation, [place] [employer] [facility] [employer] 3 10:03:32 Medications Name Sig Start Date Stop Date Status Note LastModified by Organization Details LastModified Time atorvasta tin 40 mg tablet TAKE 1 TABLET BY MOUTH ONCE DAILY AT BEDTIME active Not Available Not Available No t Available Vitamin C 500 mg tablet Take 1 tablet every day by oral route at bedtime. 12/12 completed Not Available Not Available Not Available trazodone 50 mg tablet TAKE 1 TABLET BY MOUTH ONCE DAILY NEEDED 09/13 completed Not Available Not Available Not Available enalapril maleate 5 mg tablet TAKE 1 TABLET BY MOUTH TWICE DAILY active Not Available Not Available No t Available ofloxacin 0.3 % eye drops INSTILL 1 DROP THREE TIMES DAILY INTO SURGICAL EYE, STARTING 2 DAYS BEFORE, CONTINUI NG FOR 1 WEEK AFTER SURGERY active Not Available Not Available No t Available hydrocodo ne 5 mg-acetam inophen 325 mg tablet active Not Available Not Available Not Available enalapril maleate 2.5 mg tablet TAKE 1 TABLET BY MOUTH TWICE DAILY 03/24 completed stopped by cardio Not Available Not Available Not Available clopidogr el 75 mg tablet TAKE 1 TABLET BY MOUTH ONCE DAILY 06/30 completed Not Available Not Available Not Available ciproflox acin 500 mg tablet TAKE 1 TABLET BY MOUTH EVERY 12 HOURS FOR 10 DAYS 05/10 completed Not Available Not Available Not Available sulfameth oxazole 800 mg-trimet hoprim 160 mg tablet 06/24 completed Not Available Not Available Not Available aspirin 81 mg tablet,de layed release TAKE 1 BY MOUTH ONCE DAILY active Not Available Not Available No t Available TobraDex 0.3 %-0.1 % eye ointment APPLY A 1 4 INCH RIBBON TO EACH EYE TWICE DAILY FOR 1 WEEK THEN APPLY TO EACH EYE ONCE DAILY FOR 1 WEEK 02/07 completed Not Available Not Available Not Available ketorolac 0.5 % eye drops INSTILL 1 DROP 3 TIMES DAILY INTO SURGICAL EYE, STARTING 2 DAYS BEFORE, CONTINUI NG FOR 2 WEEKS AFTER SURGERY active Not Available Not Available No t Available prednisol one acetate 1 % eye drops,tina pension INSTILL 1 DROP 3 TIMES DAILY IN SURGICAL EYE CONTINUI NG FOR 3 WEEKS AFTER SURGERY active Not Available Not Available No t Available tamsulosi n 0.4 mg capsule 06/13 completed Not Available Not Available Not Available cephalexi n 500 mg capsule TAKE 1 CAPSULE BY MOUTH EVERY 6 HOURS FOR 10 DAYS 05/10 completed Not Available Not Available Not Available oxybutyni n chloride ER 5 mg tablet,ex tended release 24 hr TAKE 1 TABLET BY MOUTH ONCE DAILY 01/03 completed stopped Not Available Not Available Not Available dorzolami de 22.3 mg-timolo l 6.8 mg/mL eye drops INSTILL 1 DROP INTO RIGHT EYE TWICE DAILY UNTIL RETURN TO OFFICE active Not Available Not Available No t Available furosemid e 20 mg tablet TAKE 1 TABLET BY MOUTH ONCE DAILY FOR 7 DAYS 01/03 completed Not Available Not Available Not Available metoprolo l tartrate 25 mg tablet 1/4 bid 05/[address] Rodriguez Not Available Not Available Not Available nitrofura ntoin monohydra te/macroc rystals 100 mg capsule TAKE 1 CAPSULE BY MOUTH EVERY 12 HOURS FOR 5 DAYS 02/07 completed Not Available Not Available Not Available Vitamin C 2020 active Not Available Not Available Not Avai lable aspirin qd 06/30 completed Not Available Not Available Not Available tamsulosi n 0.4mg daily 06/18 completed Started by urology 05/11/20 20F/u with cystosco py Not Available Not Available Not Available multivita min 1 TAB PO QD 12/12 completed Not Available Not Available Not Available fenofibra te nanocryst allized 48 mg tablet TAKE 1 TABLET BY MOUTH ONCE DAILY IN THE EVENING active Not Available Not Available No t Available hydrochlo rothiazid e 12.5 mg tablet TAKE 1 TABLET BY MOUTH ONCE DAILY 05/10 completed Not Available Not Available Not Available peg 3350 240 gram-elec trolytes 22.72 gram-6.72 g-5.84 g powdr for soln 12/23 completed Not Available Not Available Not Available cholecalc iferol (vitamin D3) 1,250 mcg (50,000 unit) capsule TAKE 1 CAPSULE BY MOUTH ONCE A WEEK 01/03 completed Not Available Not Available Not Available B12 2020 active Not Available Not Available Not Avai lable Myrbetriq 50 mg tablet,ex tended release Take 1 tablet every day by oral route for 90 days. 01/03 completed Not Available Not Available Not Available Multi Vitamin 2020 active Not Available Not Available Not Avai lable Vitamin B12 1,000mcg PO QD 12/12 completed Not Available Not Available Not Available Vitals Date Recorded Body height Body mass index (BMI) Body weight Respiratory rate Heart rate Oxygen saturation Oxygen saturation in Arterial blood by Pulse oximetry Systolic And Diastolic Provider Name and Address Organization Details Last Updated DateTime 5 180.34 cm 24.1 kg/m2 43692.4 8 g 14 /min 83 /min 98 % 98 % 136/62 mm[Hg] Emmy Izquierdo [facility] [employer] [facility] 5 11:30:34 Date Recorded Body height Body temperature Heart rate Systolic And Diastolic Provider Name and Address Organization Details Last Updated DateTime 01/03/2025 180.34 cm 97.7 [degF] 84 /min 134/60 mm[Hg] Karen Draper [facility] [employer] [facility] 01/03/2025 11:23:37 Date Recorded Body height Body mass index (BMI) Body weight Body temperature Heart rate Oxygen saturation Oxygen saturation in Arterial blood by Pulse oximetry Pain severity - 0-10 verbal numeric rating [Score] - Reported Systolic And Diastolic Provider Name and Address Organization Details Last Updated DateTime 5 180.34 cm 24.1 kg/m2 27804.4 8 g 97.3 [degF] 75 /min 98 % 98 % 0 142/64 mm[Hg] Violet Ward MA [facility] [employer] [facility] 5 11:31:26 Date Recorded Body height Body mass index (BMI) Body weight Body temperature Heart rate Systolic And Diastolic Provider Name and Address Organization Details Last Updated DateTime 4 180.34 cm 23.7 kg/m2 89959.7 g 97.3 [degF] 78 /min 112/60 mm[Hg] Karen Draper Jeremy [facility] [employer] [facility] 4 11:18:37 Date Recorded Body height Heart rate Body temperature Body mass index (BMI) Body weight Oxygen saturation Oxygen saturation in Arterial blood by Pulse oximetry Provider Name and Address Organization Details Last Updated DateTime 4 180.34 cm 76 /min 98.6 [degF] 24.3 kg/m2 06360.0 7 g 98 % 98 % Rachel Treviño CMA [facility] [employer] [facility] 4 15:51:01 Social History Question Answer Notes LastModified by Organization Details LastModified Time Tobacco Smoking Status Never Smoker Not Available [facility] 10/15/2022 04:11:35 Do You Have An Advance Directive? No MIGRATION.0301 [id number] Information not available 10/15/2022 Are You Blind Or Do You Have Difficulty Seeing? No Wears Glasses [email or web address] Information not available 01/05/2024 What Is Your Level Of Caffeine Consumption? Occasional MIGRATION.0301 [id number] Information not available 10/15/2022 How Much Tobacco Do You Chew? None MIGRATION.030 140486 Information not available 10/15/2022 In The 14 Days Before Symptom Onset, Have You Had Close Contact With A Laboratory-confi rmed COVID-19 While That Case Was Ill? No MIGRATION.030 [id number] Information not available 10/15/2022 In The 14 Days Before Symptom Onset, Have You Had Close Contact With A Person Who Is Under Investigation For COVID-19 While That Person Was Ill? No MIGRATION.030 850290 Information not available 10/15/2022 Are You Deaf Or Do You Have Serious Difficulty Hearing? No MIGRATION.030 [id number] Information not available 10/15/2022 What Type Of Diet Are You Following? REGULAR MIGRATION.030 105514 Information not available 10/15/2022 Which Illicit Or Recreational Drugs Have You Used? None MIGRATION.030 487377 Information not available 10/15/2022 What Is The Highest Grade Or Level Of School You Have Completed Or The Highest Degree You Have Received? [id number] MIGRATION.030 [id number] Information not available 10/15/2022 How Many Days Of Moderate To Strenuous Exercise, Like A Brisk Walk, Did You Do In The Last 7 Days? 4 Information not available 01/05/2024 On Those Days That You Engage In Moderate To Strenuous Exercise, How Many Minutes, On Average, Do You Exercise? 29 [email or web address] Information not available 01/05/2024 Have There Been Any Changes To Your Family Or Social Situation? No MIGRATION.0301 [id number] Information not available 10/15/2022 What Is The Fluoride Status Of Your Home? Unknown MIGRATION.030 380718 Information not available 10/15/2022 Are There Any Guns Present In Your Home? No MIGRATION.030 962619 Information not available 10/15/2022 Do You Use Insect Repellent Routinely? No MIGRATION.030 361904 Information not available 10/15/2022 Where Do You Live? SingleLevelHouse MIGRATION.0301 532326 Information not available 10/15/2022 Presence Of Domestic Violence No [email or web address] Information not available 01/05/2024 Guns Present In The Home? Yes [email or web address] Information not available 01/05/2024 Are You Able To Care For Yourself? Yes [email or web address] Information not available 01/05/2024 Are You Blind Or Do Yo Have Difficulty Seeing? No [email or web address] Information not available 01/05/2024 Are You Deaf Or Do You Have Serious Difficulty Hearing? No Information not available 01/05/2024 General Stress Level? Low Information not available 01/05/2024 Live Alone Of With Others? With Others [email or web address] Information not available 01/05/2024 Do You Have A Medical Power Of Development Analyst? No MIGRATION.0301 [id number] Information not available 10/15/2022 What Was The Date Of Your Most Recent Tobacco Screening? 04/18/2025 [email or web address] Information not available 04/18/2025 Have You Ever Been Counseled For Unhealthy Alcohol Use? No [email or web address] Information not available 01/05/2024 Do You Have Any Pets? No MIGRATION.0301 055845 Information not available 10/15/2022 What Is Your Relationship Status? MIGRATION.0301 212195 Information not available 10/15/2022 Do You Use Your Seat Belt Or Car Seat Routinely? Yes [email or web address] Information not available 01/05/2024 Do You Have Smoke And Carbon Monoxide Detectors In Your Home? Yes MIGRATION.0301 172509 Information not available 10/15/2022 Are You Passively Exposed To Smoke? No MIGRATION.0301 220498 Information not available 10/15/2022 Are There Any Smokers In Your House? No MIGRATION.0301 223660 Information not available 10/15/2022 How Much Tobacco Do You Smoke? No MIGRATION.0301 410626 Information not available 10/15/2022 Do You Use Sunscreen Routinely? No MIGRATION.0301 534834 Information not available 10/15/2022 Has Tobacco Cessation Counseling Been Provided? No N/A MIGRATION.0301 915273 Information not available 10/15/2022 How Many Years Have You Smoked Tobacco? 0 MIGRATION.0301 591715 Information not available 10/15/2022 Have You Recently Traveled Abroad? No MIGRATION.0301 767561 Information not available 10/15/2022 Do You Have Difficulty Walking Or Climbing Stairs? No MIGRATION.0301 568021 Information not available 10/15/2022 Do You Have Any Dietary Restrictions? No MIGRATION.0301 234268 Information not available 10/15/2022 How Many Days In The Past Year Have You Consumed 5 Or More Drinks? 0 [email or web address] Information not available 01/05/2024 Sex: Male Functional Status Question Answer Note LastModified by [employer] Details LastModified Time Do you or have you ever used smokeless tobacco? Never used smokeless tobacco MIGRATION.19278 49926 Information not available 10/15/2022 Are you currently employed? No [email or web address] Information not available 11/18/2022 Do you have transportation difficulties? No MIGRATION.24582 87666 Information not available 10/15/2022 Are you able to care for yourself independently? Yes MIGRATION.37007 89582 Information not available 10/15/2022 Do you have difficulty dressing, bathing, grooming, or toileting? No MIGRATION.49332 49273 Information not available 10/15/2022 Do you or have you ever used e-cigarettes or vape? Never used electronic cigarettes MIGRATION.75129 40259 Information not available 10/15/2022 What is your exercise level? Moderate MIGRATION.07540 93900 Information not available 10/15/2022 Do you use any illicit or recreational drugs? No MIGRATION.12136 32932 Information not available 10/15/2022 Do you or have you ever used any other forms of tobacco or nicotine? No MIGRATION.83035 73126 Information not available 10/15/2022 What is your level of alcohol consumption? Moderate 1-2 drinks 3-4 times a week [email or web address] Information not available 01/05/2024 Are you able to walk independently without assistance or assistive devices? YESWOREST MIGRATION.50990 97708 Information not available 10/15/2022 Do you have difficulty doing errands alone? No MIGRATION.79840 05601 Information not available 10/15/2022 What is your occupation? retired MIGRATION.74593 44587 Information not available 10/15/2022 Mental Status Question Answer Note LastModified by [employer] Details LastModified Time Do you feel stressed (tense, restless, nervous, or anxious, or unable to sleep at night)? [id number] MIGRATION.[id number] 26 Information not available 10/15/2022 Do you have difficulty concentrating, remembering or making decisions? No MIGRATION.62272293 Information not available 10/15/2022 Family History Nothing Reported. Medical History Condition Response NERVE DISEASE N BLINDNESS N RHEUMATIC FEVER N KIDNEY STONES N BLADDER PROBLEMS N MRSA N OTHER # 1 N POLIO N LUNG DISEASE/DISORDER N RADIATION / CHEMOTHERAPY N COPD N Other # 2 N BLOOD DISEASES Y EAR OR HEARING PROBLEMS N MUMPS N BOWEL PROBLEMS N DEPRESSION (INCLUDING POST ) N STROKE/TIA N ULCERS N BENIGN PROSTATIC HYPERPLASIA N MEASLES N MYOCARDIAL INFARCTION N OBESITY N GERD/NAUSEA N ANEURYSM N URINARY/BLADDER/KIDNEY PROBLEMS N CORONARY ARTERY DISEASE (CAD) N ADDICTION CONCERNS N ENDOMETRIOSIS N Impotence N USE OF BLOOD THINNERS N SKIN PROBLEMS N GASTROINTESTINAL DISORDER N PERIPHERAL VASCULAR DISEASE N MUSCLE,JOINT OR BONE PROBLEMS N GASTROINTESTINAL BLEEDING N BLOOD CLOTS N ASTHMA N CATARACTS N ERECTILE DYSFUNCTION N VARICOSITIES N GI PROBLEMS N Low Testosterone N INFERTILITY N AIDS/HIV N CHEMOTHERAPY / RADIATION N LIVER DISEASE MALE HYPOGONADISM N HYPERTENSION Y Deficiency Y TOURETTE'S N ANXIETY DISORDER N BLOOD TRANSFUSION N ANEMIA/BLOOD DISORDER N CHRONIC EAR INFECTIONS N BRONCHITIS N TUBERCULOSIS N GLAUCOMA N FOOT PROBLEM N DIVERTICULITIS N SLEEP APNEA N CHICKENPOX N INFECTIOUS DISEASE N HEART ARRHYTHMIA N PROSTATE Y INSOMNIA Y HIGH CHOLESTEROL / HYPERLIPIDEMIA Y HYPERTHYROIDISM N EYE PROBLEMS N EDEMA N CHRONIC PAIN SYNDROME N HYPOTHYROIDISM N CAROTID BLOCKAGE N CONSTIPATION N BACK / NECK PROBLEMS N HAVE YOU BEEN HOSPITALIZED OR SEEN IN [facility] IN THE PAST YEAR ? N ATHEROSCLEROSIS N BREAST PROBLEMS N DIALYSIS N ECZEMA N OSTEOPOROSIS N ARTHRITIS N NO SIGNIFICANT PAST MEDICAL HISTORY N APPENDICITIS N DIABETES, TYPE N BAD TEETH N ENT N HEARTBURN / REFLUX N AUTISM SPECTRUM DISORDER (ASD) N HEPATITIS / LIVER DISEASE N GOUT N SLEEP DISORDER N ALZHEIMER'S DISEASE N Brain Problems N HERPES N DEMENTIA N HEADACHES/MIGRAINES N SEIZURES/EPILEPSY N VASCULAR DISEASE N PACEMAKER N Blood Disorder N DIZZINESS N HEART DISEASE/HEART PROBLEMS N KIDNEY DISEASE N MULTIPLE SCLEROSIS N CARDIAC ARRHYTHMIA N CANCER: SPECIFY N ATRIAL FIBRILLATION N Gall Stones N PULMONARY EMBOLISM N AUTOIMMUNE DISEASE N Immunizations Vaccine Type Date Status Note Provider Nam e and Address Organization Details Recorded Time COVID-19, mRNA, LNP-S, PF, 30 mcg/0.3 mL dose 04/03/2021 completed JAZMÍN Nation, [place] [facility] [employer] [facility] 01/03/2025 11:20:13 COVID-19, mRNA, LNP-S, PF, 30 mcg/0.3 mL dose 04/24/2021 completed JAZMÍN Nation, [place] [facility] [employer] [facility] 01/03/2025 11:20:13 Past Encounters Encounter ID Performer Location Encounter Start Date Encounter Closed Date Diagnosis/Indication Diagnosis SNOMED-CT Code Diagnosis ICD10 Code Diagnosis IMO Codes Diagnosis Note [id number] Barrie moore MD [facility] [address] [place] [address] 12/12/2020 00:00:00 12/12/2020 13:52:35 [id number] Barrie moore MD [facility] [address] [place] [phone] 1 06/18/2021 00:00:00 06/18/2021 12:56:21 [id number] Barrie moore MD [facility] [address] [place] [address] 12/17/2021 00:00:00 12/17/2021 16:00:19 [id number] Barrie moore MD [facility] [address] [place] [address] 06/24/2022 00:00:00 06/25/2022 17:27:40 [id number] Barrie moore MD [facility] [address] [place] [id number] 1 11/18/2022 09:47:28 11/18/2022 10:55:57 Screening - NAD [id number] Z13.9 C-scope: 03/10/2006 Dr Henderson C-scopeC-s cope Dr Henderson 11/17/18, internal hemorrhoid s notedGet yearly flu shot, declinesGe t tdap if not done, declinesGe t PCV #13 and #23, declines 06/18/2021 Can do shingles vaccine declinesUT D on COVID 19 vaccineRTC in 6 monthsget labsER if worseHe and his did verbalize his understand ing of the above Essential hypertension 67814841 I10 ECHO: Dr Rodriguez: 03/19/2022 On enalapril 2.5mg dailyDoes wellGet labs Sees Dr Rodriguez [facility] Hyperlipidemia 73371607 E78.5 On ASAOn atorvastat in 40mg daily Malignant neoplasm of prostate 552653551 C61 Not on flomax 06/28/2020 : Dr Worley, s/p cystoscopy and circumcisi on doneDoes well nowKeep apt with Dr Worley Coronary arteriosclerosis 52979131 I25.10 S/p stentKeep apts with cardiology Dr Rodriguez, 09/02/2021 , next in 6 months Does well Hyperbilirubinemia 97689 006 E80.6 OV 06/30/19:H is US liver is negativeNo complaints Repeat the CMPOV 12/12/2020 :Get labs OV 06/18/2021 :Bili is elevatedRe peat the US liver againOV 12/17/2021 :US liver 07/15/2021 : NegT philipp WNL 12/10/2021 OV 06/24/2022 :Bili WNL 06/17/2022 OV 11/18/2022 :Does well, bili is elevated Vitamin D deficiency 347 95278 E55.9 Get labs Macrocytosis 525241371 D 75.89 Get labs, declined referrals in the past Essential tremor 6180963 09 G25.0 Mild seen in the R handDeclin es any meds or referrals Prediabetes 364112953 R7 3.03 More diet and exercise is needed, get labs Persistent insomnia 1919 32236 G47.09 Wants a sleep aid, will start on trazodone, all side effects explained to him [id number] Barrie moore MD [facility] [address] , [address] [place] [address] 03/24/2023 10:07:21 03/24/2023 11:09:26 Screening - NAD 221217099 Z13.9 C-scope: 03/10/2006 Dr Henderson C-scopeC-s cope Dr Henderson 11/17/18, internal hemorrhoid s notedGet yearly flu shot, declinesGe t tdap if not done, declinesGe t PCV #13 and #23, declines 06/18/2021 Can do shingles vaccine declinesUT D on COVID 19 vaccineRTC in 6 monthsget labsER if worseHe and his did verbalize his understand ing of the above Essential hypertension 57176984 I10 ECHO: Dr Rodriguez: 03/19/2022 On enalapril 2.5mg dailyOn HCTZ 12.5mg dailyDoes wellGet labs Sees Dr Rodriguez SL Hyperlipidemia 89255279 E78.5 On ASAOn atorvastat in 40mg daily, did stop as Dr Rodriguez told him to stop, will restart as LDL is elevated 03/24/2023 Malignant neoplasm of prostate 125925616 C61 Not on flomax 06/28/2020 : Dr Worley, s/p cystoscopy and circumcisi on doneWants a referral to urology but not Dr Worley, refer to Dr Mcleod 03/24/2023 Coronary arteriosclerosis 86116904 I25.10 S/p stentKeep apts with cardiology Dr Rodriguez, 09/02/2021 , next in 6 months Does well Hyperbilirubinemia 67229 006 E80.6 OV 06/30/19:H is US liver is negativeNo complaints Repeat the CMPOV 12/12/2020 :Get labs OV 06/18/2021 :Bili is elevatedRe peat the US liver againOV 12/17/2021 :US liver 07/15/2021 : NegT philipp WNL 12/10/2021 OV 06/24/2022 :Bili WNL 06/17/2022 OV 11/18/2022 :Does well, bili is elevated Vitamin D deficiency 347 64045 E55.9 Get labs Macrocytosis 629435594 D 75.89 Get labs, declined referrals in the past Essential tremor 8422528 09 G25.0 Mild seen in the R handDeclin es any meds or referrals Prediabetes 307465551 R7 3.03 More diet and exercise is needed, get labs Persistent insomnia 1919 19200 G47.09 On trazodone, all side effects explained to him [id number] Barrie moore MD [facility] [address] [facility], [address] [place] [address] 07/28/2023 09:35:36 07/28/2023 10:28:08 Screening - NAD 524841404 Z13.9 C-scope: 03/10/2006 Dr Henderson C-scopeC-s cope Dr Henderson 11/17/18, internal hemorrhoid s notedGet yearly flu shot, declinesGe t tdap if not done, declinesGe t PCV #13 and #23, declines 06/18/2021 Can do shingles vaccine declinesUT D on COVID 19 vaccineCan do RSV vaccineDec lined all vaccine recommenda tions 07/28/2023 RTC in 6 monthsget labsER if worseHe and his did verbalize his understand ing of the above Essential hypertension 11626841 I10 ECHO: Dr Rodriguez: 03/19/2022 On enalapril 2.5mg dailyOn HCTZ 12.5mg dailyDoes wellGet labs Sees Dr Rodriguez SLHV Hyperlipidemia 57036513 E78.5 On ASAOn atorvastat in 40mg daily, today 07/28/2023 , states that he was not taking this, will renewMore diet and exercise is neededGet labs Malignant neoplasm of prostate 299888001 C61 Not on flomax 06/28/2020 : Dr Worley, s/p cystoscopy and circumcisi on doneWants a referral to urology but not Dr Worley, refer to Dr Mcleod 03/24/2023 Coronary arteriosclerosis 59008676 I25.10 S/p stentKeep apts with cardiology Dr Rodriguez, 09/02/2021 , next in 6 months Does well Hyperbilirubinemia 11952 006 E80.6 OV 06/30/19:H is US liver is negativeNo complaints Repeat the CMPOV 12/12/2020 :Get labs OV 06/18/2021 :Bili is elevatedRe peat the US liver againOV 12/17/2021 :US liver 07/15/2021 : NegT philipp WNL 12/10/2021 OV 06/24/2022 :Bili WNL 06/17/2022 OV 11/18/2022 :Does well, bili is elevated OV 07/28/2023 : Bili WNL 07/21/2023 Vitamin D deficiency 347 81464 E55.9 Get labs Macrocytosis 541338442 D 75.89 Get labs, declined referrals in the past Essential tremor 6579618 09 G25.0 Mild seen in the R handDeclin es any meds or referrals Prediabetes 062965461 R7 3.03 More diet and exercise is needed, get labs Persistent insomnia 1919 91832 G47.09 On trazodone, all side effects explained to him [id number] Barrie moore MD [facility] [address] [facility], [address] [place] [address] 01/05/2024 10:04:00 01/05/2024 11:11:39 Screening - NAD 323455422 Z13.9 C-scope: 03/10/2006 Dr Henderson C-scopeC-s cope Dr Henderson 11/17/18, internal hemorrhoid s notedGet yearly flu shot, declinesGe t tdap if not done, declinesGe t PCV #13 and #23, declines 06/18/2021 Can do shingles vaccine declinesUT D on COVID 19 vaccineCan do RSV vaccineDec lined all vaccine recommenda tions 07/28/2023 RTC in 6 monthsget labsER if worseHe and his did verbalize his understand ing of the above Essential hypertension 85495870 I10 ECHO: Dr Rodriguez: 03/19/2022 On enalapril 2.5mg dailyOn HCTZ 12.5mg dailyDoes wellGet labs Sees Dr Rodriguez SLHV Hyperlipidemia 80229398 E78.5 On ASAOn atorvastat in 40mg daily, today 07/28/2023 , states that he was not taking this, will renewMore diet and exercise is neededGet labs Malignant neoplasm of prostate 420438759 C61 Not on flomax 06/28/2020 : Dr Worley, s/p cystoscopy and circumcisi on doneWants a referral to urology but not Dr Worley, refer to Dr Mcleod 03/24/2023 Coronary arteriosclerosis 12247008 I25.10 S/p stentKeep apts with cardiology Dr Rodriguez, 09/02/2021 , next in 6 monthsDr Jennifer , f/u in 3 months Does well Hyperbilirubinemia 40475 006 E80.6 OV 06/30/19:H is US liver is negativeNo complaints Repeat the CMPOV 12/12/2020 :Get labs OV 06/18/2021 :Bili is elevatedRe peat the US liver againOV 12/17/2021 :US liver 07/15/2021 : NegT philipp WNL 12/10/2021 OV 06/24/2022 :Bili WNL 06/17/2022 OV 11/18/2022 :Does well, bili is elevated OV 07/28/2023 : Bili WNL 07/21/2023 OV 01/05/2024 : Bili WNL 12/29/2023 Vitamin D deficiency 347 52442 E55.9 Get labs Macrocytosis 639484330 D 75.89 Get labs, declined referrals in the past Essential tremor 3291718 09 G25.0 Mild seen in the R handDeclin es any meds or referrals Prediabetes 518581063 R7 3.03 More diet and exercise is needed, get labs Persistent insomnia 1919 09560 G47.09 On trazodone, all side effects explained to him Adult heal th examination 824351801 Z00.00 Screening for disorder 920815689 Z13.9 [id number] Cesar Machuca MD [facility] [address] [address] 02/12/2024 13:43:34 02/12/2024 14:37:01 History of malignant neoplasm of prostate 558376200 Z85.46 Benign pro static hyperplasia with outflow obstruction 085823154 N40.1 [id number] Cesar Machuca MD [facility] [address] [address] 03/08/2024 11:41:27 03/09/2024 09:12:41 History of malignant neoplasm of prostate 011463446 Z85.46 Benign pro static hyperplasia with outflow obstruction 085082345 N40.1 [id number] Cesar Machuca MD [facility] [address] [facility] [address] [place] [address] 04/26/2024 11:02:45 04/26/2024 12:34:32 Overactive urinary bladder 874402466 N32.81 Postoperative care 93385 9007 Z48.89 [id number] Barrie moore MD [facility] [address] [facility] [address] [place] [address] 05/10/2024 10:52:54 05/10/2024 12:03:41 Screening - NAD 052997765 Z13.9 C-scope: 03/10/2006 Dr Henderson C-scopeC-s cope Dr Henderson 11/17/18, internal hemorrhoid s notedGet yearly flu shot, declinesGe t tdap if not done, declinesGe t PCV #13 and #23, declines 06/18/2021 Can do shingles vaccine declinesUT D on COVID 19 vaccineCan do RSV vaccineDec lined all vaccine recommenda tions 07/28/2023 RTC in 6 monthsget labsER if worseHe and his did verbalize his understand ing of the above Essential hypertension 63406610 I10 ECHO: Dr Rodriguez: 03/19/2022 On enalapril 5mg dailyNot on HCTZ 12.5mg dailyDoes wellGet labs Sees Dr Rodriguez SL Hyperlipidemia 59446087 E78.5 On ASAOn atorvastat in 40mg daily, will renewMore diet and exercise is neededGet labs Malignant neoplasm of prostate 036198056 C61 Not on flomax 06/28/2020 : Dr Worley, s/p cystoscopy and circumcisi on doneWants a referral to urology but not Dr Worley, refer to Dr Mcleod 03/24/2023 Dr Machuca 04/26/2024 , started on Myrbetriq, next 05/25/2024 , he is on oxybutynin Coronary arteriosclerosis 60176280 I25.10 S/p stentOn enalapril 5mg dailyKeep apts with cardiology Dr Rodriguez, 09/02/2021 , next in 6 monthsDr Rodriguez 03/23/2024 , f/u in 6 months Does well Hyperbilirubinemia 84763 006 E80.6 OV 06/30/19:H is US liver is negativeNo complaints Repeat the CMPOV 12/12/2020 :Get labs OV 06/18/2021 :Bili is elevatedRe peat the US liver againOV 12/17/2021 :US liver 07/15/2021 : NegT philipp WNL 12/10/2021 OV 06/24/2022 :Bili WNL 06/17/2022 OV 11/18/2022 :Does well, bili is elevated OV 07/28/2023 : Bili WNL 07/21/2023 OV 01/05/2024 : Bili WNL 12/29/2023 Vitamin D deficiency 347 18770 E55.9 Get labs Macrocytosis 731653358 D 75.89 Get labs, declined referrals in the past Essential tremor 8707774 09 G25.0 Mild seen in the R handDeclin es any meds or referrals Prediabetes 488978702 R7 3.03 More diet and exercise is needed, get labs Persistent insomnia 1918 14504 G47.09 On trazodone, all side effects explained to him Proteinuria 78252143 R80 .9 Heavy proteinuri a, needs to see nephrology [id number] Cesar Machuca MD [facility] [address] [place] [address] 05/25/2024 15:39:14 05/25/2024 17:00:16 Male urinary stress incontinence 160525385 N39.3 Urge incon tinence of urine 08534196 N39.41 Persistent insomnia 1918 36412 G47.09 [id number] Barrie moore MD [facility] [address] [facility] [address] [place] [address] 09/13/2024 10:51:27 09/13/2024 12:22:50 Screening - NAD 692719094 Z13.9 C-scope: 03/10/2006 Dr Henderson C-scopeC-s cope Dr Henderson 11/17/18, internal hemorrhoid s notedGet yearly flu shot, declinesGe t tdap if not done, declinesGe t PCV #13 and #23, declines 06/18/2021 Can do shingles vaccine declinesUT D on COVID 19 vaccineCan do RSV vaccineDec lined all vaccine recommenda tions 07/28/2023 , 09/13/2024 RTC in 4 monthsget labsER if worseHe and his did verbalize his understand ing of the above Essential hypertension 02207445 I10 ECHO: Dr Rodriguez: 03/19/2022 On enalapril 5mg dailyNot on HCTZ 12.5mg dailyDoes wellGet labs Sees Dr Rodriguez SL Hyperlipidemia 63508208 E78.5 On ASAOn atorvastat in 40mg daily, will renewMore diet and exercise is neededGet labs Malignant neoplasm of prostate 621556921 C61 Not on flomax 06/28/2020 : Dr Wroley, s/p cystoscopy and circumcisi on doneWants a referral to urology but not Dr Worley, refer to Dr Mcleod 03/24/2023 Dr Machuca 04/26/2024 , started on Myrbetriq, next 05/25/2024 , he is on oxybutynin Coronary arteriosclerosis 61465031 I25.10 S/p stentOn enalapril 5mg dailyKeep apts with cardiology Dr Rodriguez, 09/02/2021 , next in 6 monthsDr Rodriguez 03/23/2024 , f/u in 6 months Does well Hyperbilirubinemia 75033 006 E80.6 OV 06/30/19:H is US liver is negativeNo complaints Repeat the CMPOV 12/12/2020 :Get labs OV 06/18/2021 :Bili is elevatedRe peat the US liver againOV 12/17/2021 :US liver 07/15/2021 : NegT philipp WNL 12/10/2021 OV 06/24/2022 :Bili WNL 06/17/2022 OV 11/18/2022 :Does well, bili is elevated OV 07/28/2023 : Bili WNL 07/21/2023 OV 01/05/2024 : Bili WNL 12/29/2023 OV 09/13/2024 : Get labs Vitamin D deficiency 347 29075 E55.9 Get labs Macrocytosis 383024656 D 75.89 Get labs, declined referrals in the past Essential tremor 6082448 09 G25.0 Mild seen in the R handDeclin es any meds or referrals Prediabetes 421046794 R7 3.03 More diet and exercise is needed, get labs Persistent insomnia 1919 38969 G47.09 On trazodone, all side effects explained to him Proteinuria 92770068 R80 .9 Heavy proteinuri a, needs to see nephrology [id number] Barrie moore MD [facility] [address] [facility], [place] [address] 01/03/2025 11:05:08 01/03/2025 11:55:48 Screening - NAD 378543386 Z13.9 C-scope: 03/10/2006 Dr Henderson C-scopeC-s cope Dr Henderson 11/17/18, internal hemorrhoid s notedGet yearly flu shot, declinesGe t tdap if not done, declinesGe t PCV #13 and #23, declines 06/18/2021 Can do shingles vaccine declinesUT D on COVID 19 vaccineCan do RSV vaccineDec lined all vaccine recommenda tions 07/28/2023 , 09/13/2024 RTC in 4 monthsget labsER if worseHe and his did verbalize his understand ing of the above Essential hypertension 72069301 I10 ECHO: Dr Rodriguez: 03/19/2022 ECHO: Dr Rodriguez: 11/01/2024 On enalapril 5mg dailyNot on HCTZ 12.5mg dailyDoes wellGet labs Sees Dr Rodriguez SLHV Hyperlipidemia 67714227 E78.5 On ASAOn atorvastat in 40mg dailyMore diet and exercise is neededGet labs Malignant neoplasm of prostate 059906575 C61 Not on flomax 06/28/2020 : Dr Worley, s/p cystoscopy and circumcisi on doneWants a referral to urology but not Dr Worley, refer to Dr Mcleod 03/24/2023 Dr Machuca 05/25/2024 OV 01/03/2025 : Not on any medication s now Coronary arteriosclerosis 95299886 I25.10 S/p stentOn enalapril 5mg dailyKeep apts with cardiology Dr Rodriguez, 09/02/2021 , next in 6 monthsDr Rodriguez 03/23/2024 , f/u in 6 months Does well Hyperbilirubinemia 83820 006 E80.6 OV 06/30/19:H is US liver is negativeNo complaints Repeat the CMPOV 12/12/2020 :Get labs OV 06/18/2021 :Bili is elevatedRe peat the US liver againOV 12/17/2021 :US liver 07/15/2021 : NegT philipp WNL 12/10/2021 OV 06/24/2022 :Bili WNL 06/17/2022 OV 11/18/2022 :Does well, bili is elevated OV 07/28/2023 : Bili WNL 07/21/2023 OV 01/05/2024 : Bili WNL 12/29/2023 OV 09/13/2024 : Get labsOV 01/03/2025 : Mildly elevated, will monitor Vitamin D deficiency 347 53357 E55.9 Get labs Macrocytosis 963102584 D 75.89 Get labs, declined referrals in the past Essential tremor 2270099 09 G25.0 Mild seen in the R handDeclin es any meds or referrals Prediabetes 058148381 R7 3.03 Declined any medication s for nowMore diet and exercise is needed, get labs Persistent insomnia 1919 72669 G47.09 On trazodone, all side effects explained to him Proteinuria 94015090 R80 .9 Heavy proteinuri a, needs to see nephrology [id number] Barrie moore MD [facility] [address] [facility], [address] [place] [address] 04/18/2025 11:20:46 04/18/2025 12:43:31 Screening - NAD 917054053 Z13.9 C-scope: 03/10/2006 Dr Henderson C-scopeC-s cope Dr Henderson 11/17/18, internal hemorrhoid s notedGet yearly flu shot, declinesGe t tdap if not done, declinesGe t PCV #13 and #23, declines 06/18/2021 Can do shingles vaccine declinesUT D on COVID 19 vaccineCan do RSV vaccineDec lined all vaccine recommenda tions 07/28/2023 , 09/13/2024 RTC in 4 monthsget labsER if worseHe and his did verbalize his understand ing of the above Essential hypertension 23055718 I10 ECHO: Dr Rodriguez: 03/19/2022 ECHO: Dr Rodriguez: 11/01/2024 On enalapril 5mg dailyNot on HCTZ 12.5mg dailyDoes wellGet labs Sees Dr Rodriguez SLHV Hyperlipidemia 87172033 E78.5 On ASAOn atorvastat in 40mg dailyMore diet and exercise is neededGet labs Malignant neoplasm of prostate 759764424 C61 Not on flomax 06/28/2020 : Dr Worley, s/p cystoscopy and circumcisi on doneWants a referral to urology but not Dr Worley, refer to Dr Mcleod 03/24/2023 Dr Machuca 05/25/2024 OV 01/03/2025 : Not on any medication s now Coronary arteriosclerosis 27345104 I25.10 S/p stentOn enalapril 5mg dailyKeep apts with cardiology Dr Rodriguez, 09/02/2021 , next in 6 monthsDr Rodriguez 03/23/2024 , f/u in 6 months Does well Hyperbilirubinemia 75336 006 E80.6 OV 06/30/19:H is US liver is negativeNo complaints Repeat the CMPOV 12/12/2020 :Get labs OV 06/18/2021 :Bili is elevatedRe peat the US liver againOV 12/17/2021 :US liver 07/15/2021 : NegT philipp WNL 12/10/2021 OV 06/24/2022 :Bili WNL 06/17/2022 OV 11/18/2022 :Does well, bili is elevated OV 07/28/2023 : Bili WNL 07/21/2023 OV 01/05/2024 : Bili WNL 12/29/2023 OV 09/13/2024 : Get labsOV 01/03/2025 : Mildly elevated, will monitorOV 04/18/2025 : Does well, does NOT want any work up at this time Vitamin D deficiency 347 59002 E55.9 Get labs Macrocytosis 242601004 D 75.89 Get labs, declined referrals in the past Essential tremor 7603398 09 G25.0 Mild seen in the R handDeclin es any meds or referrals Prediabetes 726811251 R7 3.03 Declined any medication s for nowMore diet and exercise is needed, get labs Persistent insomnia 1919 08589 G47.09 On trazodone, all side effects explained to him Proteinuria 24512688 R80 .9 Heavy proteinuri a, needs to see nephrology Health Concerns Section Related Observation LastModified by Organization Detai ls LastModified Time None Recorded Concern Status LastModified by Organization Details LastModified Time None Recorded Advance Directives Directive N: Payers Insurance Date Sequence Insurance Name Policy Number Policy Clayton Covered Member ID Clayton Member ID Guarantor Name 04/17/2025 1 [facility] (MEDICARE REPLACEMENT/A DVANTAGE - PPO) [id number] Drew Gomes [id number] Drew Gomes Notes Date Note Type Note Provider Name and Address Organization Details Recorded Time 05/10/2024 text/html OV 09/23/18:Here to establish carePast PCP: Dr Corey Hx:HTNHLDReviewed social family and surgical historyHe is doing well at this timeHe needs to get labsOV 12/23/18:Here for his routine aptHe feels wellNo recent labsRest of ROS is all negativeOV 06/30/19:Here for his routine aptHe did do the labs on 04/26/19He is doing well at this timeOV 02/08/2020:Here for his routine aptHe feels wellHe did do the labsHe did see Dr Rodriguez and his enalapril was stoppedHere for his MWV OV 06/14/2020;Here for his routine aptHe feels wellHe did do the labs on 06/06/2020He is here with his wifeOV 12/12/2020:Here for his routine aptHe feels wellHe did do the labsHere with his , he does want to discuss his issues with insomniaOV 06/18/2021:Here for his routine aptHe is doing wellHe did do the labsOV 12/17/2021:Here for his routine aptHe feels 'great' states that he is very active and is to go fishingHe did do his labsOV 06/24/2022:Here for his f/u apt, he is doing very well, He is here for his MWV and he did do the labs OV 11/18/2022:Here for his routine apt, he is doing well, he did do the labs, does c/o insomnia, feels that he can get to sleep but not stay asleep OV 03/24/2023: Here for his f/u apt, he is doing well today, he did do the labs on 03/17/2023, he would like to get a referral to urology as he feels that his urination is getting worse, no blood in urine but he does have to 'sit' a long time to urinate, otherwise he is very active and is doing very well OV 07/28/2023: Here for his f/u apt, he feels well today, he did do the labs OV 01/05/2024: Here for his routine apt, he is doing well today, he is here for his MWV also, he has done his labs Barrie Pradhan MD [address], [address], [place], [address], [employer] 05/12/2024 18:41:49 05/25/2024 text/html This patient had extensive radiation therapy for his prostate cancer. 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 His incontinence is not so severe that he leaks urine when he just stands up so he does not have total incontinence. But he does have stress incontinence with coughing or straining. He goes to pads and wears hand towels in his underwear. He also has got up numerous times at night because he can feel leakage He has been trying to Kegel exercises with limited success He does say his stream has improved since his surgical procedure but he says his life is miserable because he can not sleep In the past I see he was taking trazodone 50 mg for sleep but he stopped that for some reason Also he stopped taking the Myrbetriq Cesar Machuca MD [address], [address], [place], [address], [employer] 05/25/2024 18:00:22 09/13/2024 text/html OV 09/23/18:Here to establish carePast PCP: Dr Corey Hx:HTNHLDReviewed social family and surgical historyHe is doing well at this timeHe needs to get labsOV 12/23/18:Here for his routine aptHe feels wellNo recent labsRest of ROS is all negativeOV 06/30/19:Here for his routine aptHe did do the labs on 04/26/19He is doing well at this timeOV 02/08/2020:Here for his routine aptHe feels wellHe did do the labsHe did see Dr Rodriguez and his enalapril was stoppedHere for his MWV OV 06/14/2020;Here for his routine aptHe feels wellHe did do the labs on 06/06/2020He is here with his wifeOV 12/12/2020:Here for his routine aptHe feels wellHe did do the labsHere with his , he does want to discuss his issues with insomniaOV 06/18/2021:Here for his routine aptHe is doing wellHe did do the labsOV 12/17/2021:Here for his routine aptHe feels 'great' states that he is very active and is to go fishingHe did do his labsOV 06/24/2022:Here for his f/u apt, he is doing very well, He is here for his MWV and he did do the labs OV 11/18/2022:Here for his routine apt, he is doing well, he did do the labs, does c/o insomnia, feels that he can get to sleep but not stay asleep OV 03/24/2023: Here for his f/u apt, he is doing well today, he did do the labs on 03/17/2023, he would like to get a referral to urology as he feels that his urination is getting worse, no blood in urine but he does have to 'sit' a long time to urinate, otherwise he is very active and is doing very well OV 07/28/2023: Here for his f/u apt, he feels well today, he did do the labs OV 01/05/2024: Here for his routine apt, he is doing well today, he is here for his MWV also, he has done his labs OV 09/13/2024: Here for his f/u apt, he is doing well, he has not yet done his labs Barrie Pradhan MD [address], [address], [place], [address], [place] [facility] 09/13/2024 17:04:56 01/03/2025 text/html OV 09/23/18:Here to establish carePast PCP: Dr Corey Hx:HTNHLDReviewed social family and surgical historyHe is doing well at this timeHe needs to get labsOV 12/23/18:Here for his routine aptHe feels wellNo recent labsRest of ROS is all negativeOV 06/30/19:Here for his routine aptHe did do the labs on 04/26/19He is doing well at this timeOV 02/08/2020:Here for his routine aptHe feels wellHe did do the labsHe did see Dr Rodriguez and his enalapril was stoppedHere for his MWV OV 06/14/2020;Here for his routine aptHe feels wellHe did do the labs on 06/06/2020He is here with his wifeOV 12/12/2020:Here for his routine aptHe feels wellHe did do the labsHere with his , he does want to discuss his issues with insomniaOV 06/18/2021:Here for his routine aptHe is doing wellHe did do the labsOV 12/17/2021:Here for his routine aptHe feels 'great' states that he is very active and is to go fishingHe did do his labsOV 06/24/2022:Here for his f/u apt, he is doing very well, He is here for his MWV and he did do the labs OV 11/18/2022:Here for his routine apt, he is doing well, he did do the labs, does c/o insomnia, feels that he can get to sleep but not stay asleep OV 03/24/2023: Here for his f/u apt, he is doing well today, he did do the labs on 03/17/2023, he would like to get a referral to urology as he feels that his urination is getting worse, no blood in urine but he does have to 'sit' a long time to urinate, otherwise he is very active and is doing very well OV 07/28/2023: Here for his f/u apt, he feels well today, he did do the labs OV 01/05/2024: Here for his routine apt, he is doing well today, he is here for his MWV also, he has done his labs OV 09/13/2024: Here for his f/u apt, he is doing well, he has not yet done his labs OV 01/03/2025: Here for his f/u apt, does well and he did do the labs at [facility] on 12/27/2024 Barrie Pradhan MD [address] [facility], [address], [place], [address], [place] [facility] 01/03/2025 14:06:27 04/18/2025 text/html OV 09/23/18:Here to establish carePast PCP: Dr Corey Hx:HTNHLDReviewed social family and surgical historyHe is doing well at this timeHe needs to get labsOV 12/23/18:Here for his routine aptHe feels wellNo recent labsRest of ROS is all negativeOV 06/30/19:Here for his routine aptHe did do the labs on 04/26/19He is doing well at this timeOV 02/08/2020:Here for his routine aptHe feels wellHe did do the labsHe did see Dr Rodriguez and his enalapril was stoppedHere for his MWV OV 06/14/2020;Here for his routine aptHe feels wellHe did do the labs on 06/06/2020He is here with his wifeOV 12/12/2020:Here for his routine aptHe feels wellHe did do the labsHere with his , he does want to discuss his issues with insomniaOV 06/18/2021:Here for his routine aptHe is doing wellHe did do the labsOV 12/17/2021:Here for his routine aptHe feels 'great' states that he is very active and is to go fishingHe did do his labsOV 06/24/2022:Here for his f/u apt, he is doing very well, He is here for his MWV and he did do the labs OV 11/18/2022:Here for his routine apt, he is doing well, he did do the labs, does c/o insomnia, feels that he can get to sleep but not stay asleep OV 03/24/2023: Here for his f/u apt, he is doing well today, he did do the labs on 03/17/2023, he would like to get a referral to urology as he feels that his urination is getting worse, no blood in urine but he does have to 'sit' a long time to urinate, otherwise he is very active and is doing very well OV 07/28/2023: Here for his f/u apt, he feels well today, he did do the labs OV 01/05/2024: Here for his routine apt, he is doing well today, he is here for his MWV also, he has done his labs OV 09/13/2024: Here for his f/u apt, he is doing well, he has not yet done his labs OV 01/03/2025: Here for his f/u apt, does well and he did do the labs at [facility] on 12/27/2024 OV 04/18/2025: Here for his f/u apt, he feels well today Barrie Pradhan MD [address], [facility] [address], [place], [address], [place] [facility] 04/18/2025 15:40:39
--- OUTSIDE RECORDS SUMMARY | 2025-06-27 08:41 | XMS_ITS | Clinical Summary ---
Author Organization [facility] Address [address] [place] [id number] Care Team Providers Care Tool And Cutter Grinder Name Role Phone Unavailable Primary Care Provider Unavailabl e Social History Tobacco Use Types Packs/Day Years Used Date Smoking Tobacco: Never Assessed Sex and Gender Information Value Date Recorded Sex Assigned at Not on file Legal Sex Male 7:31 AM CDT Gender Identity Not on file Sexual Orientation Not on file Plan of Treatment Health Maintenance Due Date Last Done Comments DTaP, Tdap and Td Vaccines ( 1 - Tdap) 1959 Pneumococcal Vaccine: 50+ Ye ars (1 of 1 - PCV) 1989 Zoster Vaccines (1 of 2) 1989 RSV Immunization or 60+ Years (1 - 1-dose 75+ series) 2014 COVID-19 Vaccine ( - 2024-2 6 season) 2025 Influenza Adult (#1) 2025 Hepatitis A Vaccines Aged Out No long er eligible based on patient's age to complete this topic Meningococcal B Vaccine Aged Out No l onger eligible based on patient's age to complete this topic Meningococcal Vaccine Aged Out No arturo andres eligible based on patient's age to complete this topic RSV Immunizations Under 20 Months Aged Out No longer eligible based on patient's age to complete this topic
--- OUTSIDE RECORDS SUMMARY | 2025-06-27 08:41 | XMS_ITS | Patient Health Record ---
Author Organization [facility] Address [address] [place] [address] Care Team Providers Care Staff Development Coordinator Name Role Phone TAN SANCHEZ Primary Care Provider [phone] M[place]h [place] Unavailable [phone] Reason For Referral No Information Plan Of Treatment No Information
[2025-06-27 09:36] LABS: Add Urine Microscopic? YES; Appearance Urine Clear (Clear); Glucose Urine UA Negative (Negative); Leukocyte Esterase Ur Negative LEU/UL (Negative); Nitrate Urine Negative (Negative); Non Pathogenic Casts 0-2; Specific Grav Ur 1.015 (1.001-1.035)
--- OUTSIDE RECORDS SUMMARY | 2025-06-27 10:04 | XMS_ITS | Clinical Summary ---
Author Organization [facility] Address [address] [place] [id number] Care Team Providers Care Brass Sorter Name Role Phone Unavailable Primary Care Provider [...]
--- NOTE | 2025-06-27 11:35 | PC.NURSE ---
IV placement was attempted by this RN. IV was unsuscessful. CT to place a difusics prior to pts scan.
[2025-06-27 11:48] LABS: Estimated CRCL calculation 51 ml/min; Estimated Glomerular Filt Rate > 60
--- NOTE | 2025-06-27 12:59 | WPCEDHO ---
ED Hand Off Checklist All vitals saved: IV Site documented: All med administrations documented: Triage Note Triage Note Pt to ed ambulatory co not able 06/27/25 09:15 to urinate since last night. Pt is having full bladder, and lower abd pain and pressure. Allergies Penicillins Allergy (Mild, Unverified 10/17/21 06:54) PARALYZED Notes 06/27/25 11:35 (created 06/27/25 11:49) Nurse Note by Zulema Garcia IV placement was attempted by this RN. IV was unsuscessful. CT to place a difusics prior to pts scan. Initialized on 06/27/25 11:49 - END OF NOTE Interventions/Assessments PA: Genitourinary Assessment Start: 06/27/25 08:31 Freq: Status: Active Protocol: Document 06/27/25 09:20 AZG (Rec: 06/27/25 09:20 AZG [id number]) Assessment Genitourinary Unable to Void Symptoms Urine Color Yellow Urine Clear Characteristics Urine Odor Foul Genital Discharge Characteristics Amount None Last Vital Signs Temperature 97.9 F 06/27/25 09:15 Pulse Rate 71 06/27/25 10:31 Respiratory Rate 21 H 06/27/25 10:31 Pulse Oximetry 99 06/27/25 10:31 Blood Pressure 133/77 06/27/25 10:31 Blood Pressure Mean 94 06/27/25 10:31 Blood Pressure Position Sitting 06/27/25 09:15 Oxygen Delivery Room Air 06/27/25 09:15 Weight 77.9 kg 06/27/25 09:15 Most Recent Suicide Severity Rating Suicide Severity Rating NO RISK INDICATED 06/27/25 09:15
--- NOTE | 2025-06-27 13:30 | PC.NURSE ---
Prior to pt leaving the unit, pts large zimmerman bag was swapped fro the leg bag at his request. Pt sent home with the large bag as well and was told to use it at night
== END 2025-06-27 13:40 | disposition home or self-care (01) ==
PROVIDERS: Emergency Provider Emergency Medicine; PCP Internal Medicine
DX: N40.1 Benign prostatic hyperplasia with lower urinary tract symptoms (principal); R33.8 Other retention of urine; I25.10 Atherosclerotic heart disease of native coronary artery without angina pectoris; I10 Essential (primary) hypertension; E78.5 Hyperlipidemia, unspecified; Z79.82 Long term (current) use of aspirin; Z79.899 Other long term (current) drug therapy; K44.9 Diaphragmatic hernia without obstruction or gangrene; N20.0 Calculus of kidney
CPT/HCPCS: 51702; 74178; 81001; 99284; Q9967